=== PATIENT | female | born 1975 | race Caucasian/White ===

== ENCOUNTER 2017-05-27 14:54 | Inpatient (IN) | payer BC ==
--- NOTE | 2017-05-27 15:15 | PDOC ---
History of Present Illness - General Stated Complaint: SOB Time Seen by Provider: 05/27/17 15:13 - History of Present Illness Initial Comments: 05/27/17 15:14 Ms. Kurtz is a 41 yo female with a significant past medical history of breast cancer (due to start chemotherapy treatment today) who presents to the emergency department with a 2 day history of cough, leg swelling, and shortness of breath. Ms. Kurtz also endorses new onset yellowness of her sclera today which she says convinced her to come in. She finished her last radiotherapy session 2 weeks ago. The patient denies chest pain, headache and dizziness. Denies fever, chills, nausea, vomit, diarrhea and constipation. Denies dysuria, frequency, urgency and hematuria. Allergies: NKDA Oncologist: Anastasia Chan at [facility]; [phone] (office) PCP: unknown Past History - Past Medical History Allergies/Adverse Reactions: Allergies Allergy/AdvReac Type Severity Reaction Status Date / Time No Known Allergies Allergy Verified 05/27/17 15:13 Home Medications: Ambulatory Orders Docusate Sodium 100 mg PO DAILY 05/27/17 FENTANYL 25mcg PATCH [DURAGESIC 25mcg PATCH -] 1 each TD Q72H 05/27/17 Ondansetron HCl [Zofran] 8 mg PO PRN 05/27/17 Oxycodone HCl 5 mg PO PRN 05/27/17 Sennosides [Senna] 8.6 mg PO DAILY 05/27/17 Review of Systems - Review of Systems Comments:: 05/27/17 15:14 GENERAL/CONSTITUTIONAL: No fever or chills. No weakness. HEAD, EYES, EARS, NOSE AND THROAT: +Complains of eyes yellow starting today. No change in vision. No ear pain or discharge. No sore throat. CARDIOVASCULAR: +2 days of shortness of breath at rest on 2L of home O2. RESPIRATORY: +Dry cough over the last 2 days. No wheezing, or hemoptysis. GASTROINTESTINAL: No nausea, vomiting, diarrhea or constipation. GENITOURINARY: No dysuria, frequency, or change in urination. MUSCULOSKELETAL: +Bilateral lower leg swelling. SKIN: No rash NEUROLOGIC: No headache, vertigo, loss of consciousness, or change in strength/ sensation. ENDOCRINE: No increased thirst. No abnormal weight change HEMATOLOGIC/LYMPHATIC: No anemia, easy bleeding, or history of blood clots. ALLERGIC/IMMUNOLOGIC: No hives or skin allergy. 05/27/17 18:27 *Physical Exam - Physical Exam Comments: 05/27/17 15:14 GENERAL: Awake, alert, and fully oriented, in no acute distress HEAD: No signs of trauma, normocephalic, atraumatic EYES: +Sclera Icteric. PERRLA, EOMI, conjunctiva clear ENT: Auricles normal inspection, hearing grossly normal, nares patent, oropharynx clear without exudates. Moist mucosa NECK: Normal ROM, supple, no lymphadenopathy, JVD, or masses LUNGS: No distress, speaks full sentences, clear to auscultation bilaterally HEART: Regular rate and rhythm, normal S1 and S2, no murmurs, rubs or gallops, peripheral pulses normal and equal bilaterally. ABDOMEN: +Drain on left side observed patient reports is from Left lung and drained 2x per week at home. Soft, nontender, normoactive bowel sounds. No guarding, no rebound. No masses EXTREMITIES: +Bilateral 2+ pitting edema noted on lower extremities. NEUROLOGICAL: Cranial nerves II through XII grossly intact. Normal speech, normal gait, no focal sensorimotor deficits SKIN: Warm, Dry, normal turgor, no rashes or lesions noted. ED Treatment Course - LABORATORY CBC & Chemistry Diagram: 05/27/17 16:47 05/27/17 16:47 Medical Decision Making - Medical Decision Making 05/27/17 16:16 Patient presents with metastatic breast cancer due to start chemotherapy today. Consulted with Oncologist at [facility] (Dr. Anastasia Wills). Will work-up here and transfer as necessary for further care. 05/27/17 18:57 Care taken over by Dr. Jackson for further workup. 05/27/17 18:57 *DC/Admit/Observation/Transfer Diagnosis at time of Disposition: Primary malignant neoplasm of breast with metastasis
[2017-05-27 15:18] VITALS: BMI 24.1
--- NOTE | 2017-05-27 16:15 | PDOC ---
Attending Attestation - Physicial Exam PE: 05/27/17 16:42 EKG read by me at 16:18 Impression: Sinus tachycardia, possible left atrial enlargement, low voltage QRS Vent Rate: 126 bpm ND Interval: 134 ms QTc: 460 ms - Medical Decision Making 05/27/17 16:43 Documentation prepared by Kelly Ramos, acting as medical laboratory technologist for William Shepard, DO EXAM#: TYPE/EXAM: RESULT: [id number] CT/ABDOMEN PELVIS CT W/WO CONTR Abdomen and pelvis CT (without and with contrast) Clinical information: evaluate liver, common bile duct Multiplanar, multiphase imaging was performed following the intravenous administration of nonionic contrast in addition to noncontrast scanning. There is mild partial obscuration of the right upper quadrant secondary to beam hardening artifact arising from the patient's right upper extremity which could not be fully removed from the field-of- view at this time. No prior CT studies are available at this facility for direct comparison. The current exam is correlated with sonography performed earlier the same date. There is partial imaging of bilateral pleural effusions which are probably small to moderate in size. Correlate with radiography. A percutaneous pleural drainage catheter is noted within the left mid to lower chest. Bilateral lower lung field interstitial thickening is seen Note is also made of partial imaging of a 3.4 x 1.5 cm pleural-based soft tissue opacity suggestive of neoplastic disease within the right mid to lower chest ventrally. Similar 1 cm pleural -based soft tissue opacity is seen within the right mid chest ventrally. Multiple low-attenuation mass lesions are noted within the left right hepatic lobes suggestive of neoplastic disease. There is resultant hepatomegaly with splaying of the hepatic veins. No hepatic vein thrombosis is noted. There is also no evidence of thrombosis involving the portal venous system or inferior vena cava. Moderate partial effacement of the retrohepatic segment of the inferior cava is noted secondary to contiguous hepatic mass lesions. There is probable focal fatty infiltration within the posterior segment of the right hepatic lobe. A small amount of ascites is noted within the abdomen and pelvis bilaterally. Concentric subcutaneous edema is noted along the abdomen and pelvis principally along the flanks. There is also subcutaneous edema at the level of the partially imaged upper thighs. There is partial imaging of a catheter within the superior vena cava extending into the mid right atrium. No evidence of pneumoperitoneum, bowel obstruction. Mildly hyperdense material is seen within the gallbladder lumen consistent with inspissated bile/ sludge. There is no associated gallbladder overdistention. No obvious wall edema or pericholecystic fluid is noted. There is no definite intrahepatic or extrahepatic biliary tract dilatation. Apparent slight prominence of the common bile duct noted on sonography cannot be appreciated on CT. The spleen, greatest adrenal glands and kidneys demonstrate no discrete abnormality. There is no aortic aneurysm. No definite lymphadenopathy is noted. There is no obvious CT evidence of acute appendicitis or diverticulitis. No gross bowel pathology is identified allowing for lack of intraluminal contrast and underdistention. The T8 and T12 vertebral bodies demonstrate heterogeneous sclerosis suggestive of neoplastic disease. There is no CT evidence of fracture. No gross epidural neoplastic disease is identified. Impression: Very numerous hepatic lesions are noted strongly suggestive of neoplastic disease. There is resultant partial effacement of the retrohepatic segment of the inferior vena cava. Small amount of ascites. Concentric subcutaneous edema along the abdomen and pelvis principally along the flanks. There is also subcutaneous edema at the level of the partially imaged upper thighs. Bilateral pleural effusions. Left pleural drainage catheter in place. Partial imaging of bilateral lower lung field pleural-based soft tissue lesions suggestive of neoplastic disease. Nonspecific bilateral lower lung field interstitial thickening. T8 and T12 vertebral body sclerosis is noted suggestive neoplastic disease. No definite biliary tract dilatation is seen. Reported By: Willie Baer MD 05/27/17 [id number] 05/27/17 22:35 [facility] ([phone]) was called at 22:33 requesting a transfer of this patient. I was asked to call back in 15 minutes to speak with Saba, the charge nurse ([phone]). 05/27/17 22:58 [facility] direct floor line ([phone]) was called at 22: 58 requesting to speak with Saba charge nurse, in regards a transfer of this patient. Dr. Puckett picked up the phone and the case was discussed. Dr. Puckett states he can not accept the patient at this time. I will microblog hospitalist. <Kelly Ramos - Last Filed: 05/27/17 23:04> - Resident Resident Name: Mac Mccartney - ED Attending Attestation I have performed the following: I have examined & evaluated the patient, The case was reviewed & discussed with the resident, I agree w/resident's findings & plan, Exceptions are as noted - HPI HPI: 05/27/17 16:12 41 YO F c Metastatic Breast Cancer, presents with increasing dyspnea and jaundice. No Chemo recently, Last palliative radiation to left lung was two weeks ago. Care at [facility] - Physicial Exam PE: 05/27/17 16:14 Appears Jaundiced, VSS, NAD - Medical Decision Making 05/27/17 16:[address] Mccartney's Assessment and Plan <William Shepard - Last Filed: 05/27/17 23:18> Discharge Disposition - Discharge Dispostion Admit: Yes <William Shepard - Last Filed: 05/27/17 23:18> - Diagnosis Metastatic breast cancer, Hepatic encephalopathy syndrome, Pleural effusion Liver failure Qualifiers: Liver failure chronicity: acute Hepatic coma status: without hepatic coma Qualified Code(s): K72.00 - Acute and subacute hepatic failure without coma; K72.00 - Acute and subacute hepatic failure without coma Dyspnea Qualifiers: Dyspnea type: unspecified Qualified Code(s): R06.00 - Dyspnea, unspecified; R06.00 - Dyspnea, unspecified - Discharge Dispostion Condition at time of disposition: Unchanged/Unknown Medical Decision Making - Medical Decision Making 05/27/17 23:06 Patient is in Liver Failure with some Ascites, Pleural Effusion, Dependent Edema and Dyspnea. Patient remains a full code, and, was scheduled to start a new chemotherapy today. Discussed with Dr. Parekh at the Urgent Care at [facility] who tells me their hospital is full and unable to accept the patient in Transfer tonight, and that we could check back in a day or two but they really have no space for her now. No PMD here at [place], will seek admission/treatment from our hospitalist service. <William Shepard - Last Filed: 05/27/17 23:18>
[2017-05-27 17:15] LABS: BASOPHIL 0.5 % (0-2.0); EOSINOPHIL 0.2 % (0-4.5); MCH 34.2 pg (25.7-33.7); MCHC 33.2 g/dl (32.0-36.0); MEAN PLT VOLUME 8.5 fl (7.5-11.1); RDW 28.5 % (11.6-15.6); WHITE BLOOD COUNT 8.5 K/mm3 (4.0-10.0)
[2017-05-27 17:23] LABS: PLATELET COUNT 26 K/MM3 (134-434)
[2017-05-27 17:42] LABS: INR 1.5 (0.82-1.09)
[2017-05-27 17:44] LABS: ACTIVATED PTT 28.7 SECONDS (26.9-34.4)
[2017-05-27 17:56] LABS: ALBUMIN 1.9 g/dl (3.4-5.0); ANION GAP 12 (8-16); CALCIUM 7.7 mg/dL (8.5-10.1); CO2 22 mmol/L (21-32); CREATININE 0.4 mg/dL (0.55-1.02); GLUCOSE,RANDOM 77 mg/dL (74-106); SGPT/ALT 122 U/L (12-78)
[2017-05-27 17:58] LABS: ALK PHOS 409 U/L (45-117); BILIRUBIN,TOTAL 7.1 mg/dL (0.2-1.0); TOT PROT 5.9 g/dl (6.4-8.2)
[2017-05-27 17:59] LABS: SGOT/AST 398 U/L (15-37)
[2017-05-27 18:43] LABS: PLATELET ESTIMATE MARKEDLY DECREASED (NORMAL)
[2017-05-27 18:44] LABS: ANISOCYTOSIS 3+; HYPOCHROMIA 1+; MACROCYTOSIS 1+; MICROCYTOSIS 2+
[2017-05-27] MEDS ORDERED: LACTULOSE 20 GM/30 ML UDC (FOR ORAL USE ONLY) PO ONE (23:23)
[2017-05-27] MEDS ORDERED: LACTULOSE 20 GM/30 ML UDC (FOR ORAL USE ONLY) ONE (23:52)
--- NOTE | 2017-05-28 01:31 | PN ---
Teaching Attending Note Name of Resident: Mu Chatman ATTENDING PHYSICIAN STATEMENT I saw and evaluated the patient. I reviewed the resident's note and discussed the case with the resident. I agree with the resident's findings and plan as documented. SUBJECTIVE: 41 yo c/o cough, SOB and leg edema x 2 days OBJECTIVE: Vital Signs Temperature 98.4 F 05/27/17 21:46 Pulse Rate 130 H 05/27/17 21:46 Respiratory Rate 22 05/27/17 21:46 Blood Pressure 100/70 05/27/17 21:46 O2 Sat by Pulse Oximetry (%) 95 05/27/17 21:46 HEART: Regular rate and rhythm, normal S1 and S2, no murmurs, rubs or gallops, peripheral pulses normal and equal bilaterally. ABDOMEN: +Drain on left side observed patient reports is from Left lung and drained 2x per week at home. Soft, nontender, normoactive bowel sounds. No guarding, no rebound. No masses EXTREMITIES: +Bilateral 2+ pitting edema noted on lower extremities. CBC, BMP 05/27/17 16:47 05/27/17 16:47 ASSESSMENT AND PLAN: 1. Metastatic Breast Cancer -metastatic disease to liver /lungs. On paliative XRT /chemo . No prior records are available. 2. Metastatic pleural effusion , possibly postobstructive infectious component , pleurex in place 3. Hyponatremia - severe 4. Metastatic liver disease and elevated ammonia level 5. Anasarca- 2/2 low albumin level PLAN - obtain prior records from [facility] - slowly correct Na - drain pleurex - IVF - paliative chemotherapy per primary oncolgist in [facility]
[2017-05-28 01:41] LABS: URINE APPEARANCE SLCLOUDY; URINE BLOOD NEGATIVE (NEGATIVE); URINE COLOR AMBER; URINE GLUCOSE (UA) NEGATIVE (NEGATIVE); URINE KETONE NEGATIVE (NEGATIVE); URINE NITRITE NEGATIVE (NEGATIVE); URINE UROBILINOGEN 4.0 E.U/dl mg/dL (0.2-1.0)
[2017-05-28 01:46] LABS: URINE PROTEIN 1+ (NEGATIVE)
[2017-05-28] MEDS ORDERED: guaiFENesin 200 MG/10 ML 10 ML UNIT-DOSE CUPS ONE (01:54)
[2017-05-28] MEDS: guaiFENesin 200 MG/10 ML 10 ML UNIT-DOSE CUPS PO PRN (01:57)
[2017-05-28 02:04] LABS: URINE BACTERIA RARE /hpf (NONE SEEN); URINE HYALINE CAST 4 /lpf; URINE MUCUS RARE; URINE RBC 3 /hpf (0-3); URINE WBC 26 /hpf (3-5)
--- NOTE | 2017-05-28 02:54 | HP ---
CHIEF COMPLAINT: cough, sob PCP: Onc: Dr. Anastasia Chan [facility] [phone] HISTORY OF PRESENT ILLNESS: Pt is an unfortunate 41 year old female with PMH breast cancer with mets to the lung who presented to ED with 2 days of dry cough and shortness of breath. Pt has had a persistent cough without any sputum production. Pt denies fever, chills, nausea, vomiting, diarrhea. Pt also states that she has not been eating and drinking well for the last 2 weeks, which she attributes to her most recent round of radiation. She is tolerating PO much better, now. ER course was notable for: (1) tachycardia. labs significant for plt 26, INR 1.5, LA 6.3, Ammonia 57.1, Na 126, AST 399, ALT 122, ALK 409, Alb 1.9, T.bili 7.7, D. bili 7.1 (2) CXR showing L pleural effusion pending official read. Abd U/S: diffuse hepatic heterogeneity, perihepatic ascites, R pleural effusion. Abd CT: hepatic neoplasm, Ascites, b/l pleural effusion, b/l lower lung tissue thickening, T12 changes suggestive of possible neoplasm (3) Recent Travel: denies PAST MEDICAL HISTORY: Breast CA with mets to liver and lung PAST SURGICAL HISTORY: Right mastectomy Social History: Smoking: denies Alcohol: denies Drugs: denies Family History: denies Allergies No Known Allergies Allergy (Verified 05/27/17 15:13) HOME MEDICATIONS: Home Medications Medication Instructions Recorded Docusate Sodium 100 mg PO DAILY 05/27/17 FENTANYL 25mcg PATCH [DURAGESIC 1 each TD Q72H 05/27/17 25mcg PATCH -] Ondansetron HCl [Zofran] 8 mg PO PRN 05/27/17 Oxycodone HCl 5 mg PO PRN 05/27/17 Sennosides [Senna] 8.6 mg PO DAILY 05/27/17 REVIEW OF SYSTEMS CONSTITUTIONAL: generalized weakness Absent: fever, chills, diaphoresis, , malaise, loss of appetite, weight change HEENT: difficulty swallowing, yellow eyes Absent: rhinorrhea, nasal congestion, throat pain, throat swelling, , mouth swelling, ear pain, eye pain, visual changes CARDIOVASCULAR: Absent: chest pain, syncope, palpitations, irregular heart rate, lightheadedness , peripheral edema RESPIRATORY: cough, shortness of breath, dyspnea with exertion Absent: , orthopnea, wheezing, stridor, hemoptysis GASTROINTESTINAL: Absent: abdominal pain, abdominal distension, nausea, vomiting, diarrhea, constipation, melena, hematochezia GENITOURINARY: Absent: dysuria, frequency, urgency, hesitancy, hematuria, flank pain, genital pain MUSCULOSKELETAL: Absent: myalgia, arthralgia, joint swelling, back pain, neck pain SKIN: Absent: rash, itching, pallor HEMATOLOGIC/IMMUNOLOGIC: Absent: easy bleeding, easy bruising, lymphadenopathy, frequent infections ENDOCRINE: Absent: unexplained weight gain, unexplained weight loss, heat intolerance, cold intolerance NEUROLOGIC: Absent: headache, focal weakness or paresthesias, dizziness, unsteady gait, seizure, mental status changes, bladder or bowel incontinence PSYCHIATRIC: Absent: anxiety, depression, suicidal or homicidal ideation, hallucinations. PHYSICAL EXAMINATION Vital Signs - 24 hr 05/27/17 05/27/17 05/27/17 15:15 16:21 18:40 Temperature 98 F Pulse Rate 120 H Pulse Rate [ 124 H Left Radial] Respiratory 20 22 Rate Blood Pressure 105/74 Blood Pressure 98/64 [Left Arm] O2 Sat by Pulse 100 98 95 Oximetry (%) 05/27/17 21:46 Temperature 98.4 F Pulse Rate Pulse Rate [ 130 H Left Radial] Respiratory 22 Rate Blood Pressure Blood Pressure 100/70 [Left Arm] O2 Sat by Pulse 95 Oximetry (%) GENERAL: Awake, alert, and fully oriented, in no acute distress. Left chest chemoport HEAD: Normal with no signs of trauma. EYES: Pupils equal, round and reactive to light, extraocular movements intact, sclera icteric, conjunctiva clear. No lid lag. EARS, NOSE, THROAT: oropharynx clear without exudates. Moist mucous membranes. NECK: Normal range of motion, supple without lymphadenopathy, JVD, or masses. No bruits LUNGS: Breath sounds equal, clear to auscultation bilaterally. No wheezes, and no crackles. No accessory muscle use. HEART: Regular rhythm, tachycardic, normal S1 and S2 without murmur, rub or gallop. ABDOMEN: Soft, nontender, not distended, normoactive bowel sounds, no guarding, no rebound, no masses. No hepatomegaly or splenomegaly. MUSCULOSKELETAL: Normal range of motion at all joints. No bony deformities or tenderness. No CVA tenderness. UPPER EXTREMITIES: 2+ pulses, warm, well-perfused. No cyanosis. No clubbing. No peripheral edema. LOWER EXTREMITIES: 2+ pulses, warm, well-perfused. No calf tenderness. No peripheral edema. NEUROLOGICAL: Cranial nerves II-XII intact. Normal speech. Sensation intact throughout. Strength 5/5 except hip flexion 3/5 PSYCHIATRIC: Cooperative. Good eye contact. Appropriate mood and affect. SKIN: Warm, dry, normal turgor, no rashes or lesions noted, normal capillary refill. Laboratory Results - last 24 hr 05/27/17 05/27/17 05/27/17 16:47 16:47 16:47 WBC 8.5 RBC 3.40 L Hgb 11.6 Hct 35.1 MCV 103.0 H MCH 34.2 H MCHC 33.2 RDW 28.5 H Plt Count 26 L* MPV 8.5 Neutrophils % 76.0 Lymphocytes % 12.1 Monocytes % 11.2 H Eosinophils % 0.2 Basophils % 0.5 Hypochromia 1+ Platelet Estimate Markedly decreased Anisocytosis 3+ Microcytosis 2+ Macrocytosis 1+ PT with INR INR PTT (Actin FS) Sodium 126 L Potassium 4.9 Chloride 92 L Carbon Dioxide 22 Anion Gap 12 BUN 16 Creatinine 0.4 L Creat Clearance w eGFR > 60 Random Glucose 77 Lactic Acid Calcium 7.7 L Total Bilirubin 7.1 H Direct Bilirubin AST 398 H ALT 122 H Alkaline Phosphatase 409 H Ammonia 57.1 H Total Protein 5.9 L Albumin 1.9 L Blood Type Antibody Screen Spec Expiration Date 05/27/17 05/27/17 05/27/17 16:47 16:47 17:00 WBC RBC Hgb Hct MCV MCH MCHC RDW Plt Count MPV Neutrophils % Lymphocytes % Monocytes % Eosinophils % Basophils % Hypochromia Platelet Estimate Anisocytosis Microcytosis Macrocytosis PT with INR 17.00 H INR 1.50 H PTT (Actin FS) 28.7 Sodium Potassium Chloride Carbon Dioxide Anion Gap BUN Creatinine Creat Clearance w eGFR Random Glucose Lactic Acid 6.3 H* Calcium Total Bilirubin Direct Bilirubin 5.2 H AST ALT Alkaline Phosphatase Ammonia Total Protein Albumin Blood Type Antibody Screen Spec Expiration Date 05/27/17 05/27/17 18:00 19:00 WBC RBC Hgb Hct MCV MCH MCHC RDW Plt Count MPV Neutrophils % Lymphocytes % Monocytes % Eosinophils % Basophils % Hypochromia Platelet Estimate Anisocytosis Microcytosis Macrocytosis PT with INR INR PTT (Actin FS) Sodium Potassium Chloride Carbon Dioxide Anion Gap BUN Creatinine Creat Clearance w eGFR Random Glucose Lactic Acid Calcium Total Bilirubin Cancelled Direct Bilirubin Cancelled AST Cancelled ALT Cancelled Alkaline Phosphatase Cancelled Ammonia Total Protein Cancelled Albumin Cancelled Blood Type Cancelled Antibody Screen Cancelled Spec Expiration Date Cancelled ASSESSMENT/PLAN: Pt is a pleasant 41 year old female with PMH breast cancer with mets to the lung who presented to ED with cough and SOB. Pt is being admitted for liver failure 2/2 liver metastases. Pt was diagnosed with breast cancer at [facility] 2 years ago. She received chemo and radiation x 20 rounds and had a R mastectomy. 3 months later , she had a recurrence in the same region. Despite many more rounds of chemo and radiation, she has unfortunately had metastases to her lung and liver. She has been receiving treatment at [facility]. Day team to get records from [facility]. Oncologist: Dr. Anastasia Chan [facility] #cough/SOB -Lung mets -pleural effusion w/ drain -Guaifenesin #Liver failure 2/2 liver mets -ammonia -bili -albumin -INR -scleral icterus -anasarca w/ 2+ pedal edema -if AMS -> lactulose for hepatic encephalopathy #Breast CA with mets to liver & lung -L chest portacath -f/u heme/onc #Tachycardia -likely 2/2 volume depletion (pt has not been tolerating PO well for 2 weeks) as well as diffuse mets -NS #thrombocytopenia -plts of 26 -asymtommatic without bleeding -if pt develops bleed, will consider plt transfusion #lactic acidosis -likely 2/2 metastatic disease and decreased volume due to decreased PO intake -NS -f/u labs #Incidental finding of kasia changes of T12 -changes suggestive of possible neoplasm -review records with [facility] and primary oncologist -f/u with heme/onc #low Na -NS -f/u CMP #FEN -NS -Na 126 -Reg diet #PPX -SCDs #Dispo -Admit to Med/Surg Visit type - Emergency Visit Emergency Visit: Yes ED Registration Date: 05/28/17 Care time: The patient presented to the Emergency Department on the above date and was hospitalized for further evaluation of their emergent condition. - New Patient This patient is new to me today: Yes Date on this admission: 05/28/17 - Critical Care Critical Care patient: No
[2017-05-28] MEDS ORDERED: LEVOFLOXACIN 250 MG TABLET (FP) PO ONE (07:17)
[2017-05-28] MEDS ORDERED: LEVOFLOXACIN 250 MG TABLET (FP) ONE (07:40)
[2017-05-28] MEDS ORDERED: LEVOFLOXACIN 500 MG TABLET (FP) ONE (07:40)
[2017-05-28] MEDS: SODIUM CHLORIDE 1,000 ML IV SCH (08:09)
[2017-05-28 09:29] LABS: URINE LEUK ESTERASE 1+ (NEGATIVE)
--- NOTE | 2017-05-28 10:02 | HOSP ---
Physical Examination Vital Signs: Vital Signs Temperature 98.4 F 05/27/17 21:46 Pulse Rate 128 H 05/28/17 09:42 Respiratory Rate 23 05/28/17 09:42 Blood Pressure 96/72 05/28/17 09:42 O2 Sat by Pulse Oximetry (%) 96 05/28/17 09:42 Findings/Remarks: Subjective: The patient was seen and examined in the ED. She complains of worsening shortness of breath over the past 2-4 weeks. Left chest PleurX last drained on 05/25. Instructed RN to drain today Discussed with patient's oncologist, Anastasia Wills, ([phone]) at [facility]. Patient accepted for transfer as of 09:49 Platelets 16, will monitor, no evidence of active bleeding. Will order if platelets <10 CTAP reviewed, discussed possible addition of abx with Dr. Drummond, awaiting to be evaluated. Current Medications Generic Name Dose Route Start Last Admin Trade Name Freq PRN Reason Stop Dose Admin Guaifenesin 10 ml 05/28/17 01:34 05/28/17 01:57 Robitussin - PO 10 ml Q6H PRN Administration COUGH Sodium Chloride 1,000 mls @ 75 mls/hr 05/28/17 07:00 05/28/17 08:09 Normal Saline - IV 75 mls/hr ASDIR KAREN Administration Objective: Vital Signs Period Temp Pulse Resp BP Sys/[place] Pulse Ox Last 24 Hr 98 F-98.4 F 120-130 20-23 96-105/64-76 95-100 Physical Exam: General: NAD, A&Ox3 HEENT: Sclera icteric Lungs: Tachypnic. Decreased breath sounds bilaterally, greater on the left. Left PleurX in place Heart: Tachycardia. S1S2 Abd: Soft, non-tender, non-distended. Normoactive bowel sounds Ext: B/l lower extremities with 3+ pitting edema. 2+ DP/PT bilaterally Skin: Right breast fungating, erythematous Neuro: CN 2-12 intact CBCD WBC 10.1 K/mm3 (4.0-10.0) H 05/28/17 10:00 RBC 3.00 M/mm3 (3.60-5.2) L 05/28/17 10:00 Hgb 10.2 GM/dL (10.7-15.3) L D 05/28/17 10:00 Hct 31.2 % (32.4-45.2) L 05/28/17 10:00 MCV 104.1 fl (80-96) H 05/28/17 10:00 MCHC 32.6 g/dl (32.0-36.0) 05/28/17 10:00 RDW 28.7 % (11.6-15.6) H 05/28/17 10:00 Plt Count 16 K/MM3 (134-434) L* D 05/28/17 10:00 MPV 7.0 fl (7.5-11.1) L D 05/28/17 10:00 CMP Sodium 126 mmol/L (136-145) L 05/27/17 16:47 Potassium 4.9 mmol/L (3.5-5.1) 05/27/17 16:47 Chloride 92 mmol/L (98-107) L 05/27/17 16:47 Carbon Dioxide 22 mmol/L (21-32) 05/27/17 16:47 Anion Gap 12 (8-16) 05/27/17 16:47 BUN 16 mg/dL (7-18) 05/27/17 16:47 Creatinine 0.4 mg/dL (0.55-1.02) L 05/27/17 16:47 Creat Clearance w eGFR > 60 (>60) 05/27/17 16:47 Random Glucose 77 mg/dL (74-106) 05/27/17 16:47 Calcium 7.7 mg/dL (8.5-10.1) L 05/27/17 16:47 Total Bilirubin 7.1 mg/dL (0.2-1.0) H 05/27/17 16:47 AST 398 U/L (15-37) H 05/27/17 16:47 ALT 122 U/L (12-78) H 05/27/17 16:47 Alkaline Phosphatase 409 U/L (45-117) H 05/27/17 16:47 Total Protein 5.9 g/dl (6.4-8.2) L 05/27/17 16:47 Albumin 1.9 g/dl (3.4-5.0) L 05/27/17 16:47 Assessment: This is a 41 year old female with PMHx of breast cancer with mets to the liver, lungs (has left lung PleurX), and possible bone who presented to the ED with shortness of breath and increase leg swelling. Plan: 1) Shortness of breath - Progression of disease vs. PE vs. worsening pleural effusion - PleurX drained 20ml today, patient reports feeling better - Discussed with the patient possibility of PE, however unable to treat at this time due to severe thrombocytopenia. Patient and family aware of this - Will defer chest CTA at this time (patient refused) and it will not change the current management given severe thrombocytopenia - Possible superimposed pneumonia, discussed with Dr. Drummond, started on Vancomycin and Zosyn - O2 via NC prn - F/u pulmonary consult 2) Elevated lactic acid - Patient does not appear toxic for the degree of elevation of her lactic acid - It continues to trend up - Will give small fluid bolus and recheck this evening - Cultures pending - Elevation in lactic acid may be 2/2 malignancy. Spoke to Sirena, RN for Dr. Anastasia Wills who states patient does not have any lactic acid levels to compare it to - Continue to trend 3) Transaminitis - Labs from 05/13 reveal total bilirubin 1, AST 238, ALT 78, Alk phos 199 - Worsening here - Patient jaundice with icteric sclera - Liver ultrasound with diffuse nonspecific hepatic heterogeneity. Small amount of perihepatic ascites. No obvious evidence of cholelithiasis. Borderline gallbladder wall thickness. Moderate amount of inspissated bile/sludge within the gallbladder lumen. Common bile duct appears to be slightly prominent with a 0.7cm diameter - MRCP per GI - Appreciate GI consult 4) Hyperammonemia - Given lactulose, f/u level tomorrow 5) Breast cancer with mets to lung, liver, possible bone - CTAP with T8 and T12 vertebral body sclerosis suggestive of neoplastic disease - Per Dr. Wills's RN, patient had progression of disease on Gemcitabine and Carboplatin. Was given Eribulin on 03/31/17 and was scheduled for round 2 of Eribulin on 05/27 6) Left lung chronic pleural effusion with PleurX - Per patient draining 2 times per week. Per Sirena RN with Dr. Wills, patient was asked as of 05/06/17 to drain once per week - Drained 20ml today - Drain daily prn (patient will tell the provider when she no longer wants it drained) 7) B/l lower extremity edema - Doppler negative for DVT b/l - Likely progression of disease - Lymphadema wrap with improvement in edema 8) F/E/N: - Monitor electrolytes - Hypophosphatemia: replete - Hyponatremia: Monitor, likely 2/2 malignancy? 9) Prophylaxis: - Hold all chemical DVT prophylaxis 2/2 severe thrombocytopenia - SCDs bilaterally 10) Dispo: - Requires continued inpatient care - Had discussion about DNR/DNI with patient and family at the bedside. The mother stated in Indonesian and was translated to me in Kiswahili "we don't believe in mechanical ventilation". They stated they are not ready at this time to put anything into writing and will discuss it as a family when I leave CODE STATUS: FULL CODE
[2017-05-28 10:15] LABS: BASOPHIL 0.1 % (0-2.0); EOSINOPHIL 0.1 % (0-4.5); MCH 33.9 pg (25.7-33.7); MCHC 32.6 g/dl (32.0-36.0); MEAN CELL VOLUME 104.1 fl (80-96); NEUTROPHILS 72.6 % (42.8-82.8); RDW 28.7 % (11.6-15.6); WHITE BLOOD COUNT 10.1 K/mm3 (4.0-10.0)
[2017-05-28 10:28] LABS: PLATELET COUNT 16 K/MM3 (134-434)
[2017-05-28 10:47] LABS: ALBUMIN 1.7 g/dl (3.4-5.0); ANION GAP 15 (8-16); CALCIUM 7.2 mg/dL (8.5-10.1); CO2 21 mmol/L (21-32); CREATININE 0.5 mg/dL (0.55-1.02); GLUCOSE,RANDOM 92 mg/dL (74-106); MAGNESIUM 1.9 mg/dL (1.8-2.4); SGOT/AST 346 U/L (15-37); SGPT/ALT 114 U/L (12-78); TOT PROT 5.2 g/dl (6.4-8.2)
[2017-05-28 10:48] LABS: ALK PHOS 345 U/L (45-117); BILIRUBIN,TOTAL 6.8 mg/dL (0.2-1.0); PHOSPHOROUS 1.3 mg/dL (2.5-4.9)
--- NOTE | 2017-05-28 12:48 | CONSULT ---
Consultation: CONSULT REQUEST: INFECTIOUS DISEASE HISTORY OF PRESENT ILLNESS: Ms Kurtz is a 41 yo F with PMHx of breast CA and chronic pleural effusions with a pleurX catheter who presented to the ED yesterday complaining of new onset scleral icterus. Patient denies N, V and acute abdominal pain, but endorses chronic leg edema. In addition, she has been experiencing gradually increasing SOB and nonproductive cough for the past 5 days. Patient has been on chronic oxygen at home for 3 weeks. Endorses chronic orthopnea. She denies cough productive of any sputum, f, chills, SOB while on oxygen, traveling recently, or being around any sick contacts. She has no prior history of PNA. In ED, patient was afebrile and tachycardic at 120s. WBC count of 10.1. CT abd/ pelvis showed pleural effusions and b/l lower lung, liver, and bone lesions consistent with metastatic spread. It is unknown whether these are new or old. No infiltrate was seen. Also notable was Lactic acid of 7.6 (could be due to liver failure or malignancy or both), direct hyperbilirubinemia and transaminitis. History was obtained per Medical Student. Home Medication List Medication Instructions Recorded Confirmed Type Docusate Sodium 100 mg PO DAILY 05/27/17 05/27/17 History FENTANYL 25mcg PATCH [DURAGESIC 1 each TD Q72H 05/27/17 05/27/17 History 25mcg PATCH -] Ondansetron HCl [Zofran] 8 mg PO PRN 05/27/17 05/27/17 History Oxycodone HCl 5 mg PO PRN 05/27/17 05/27/17 History Sennosides [Senna] 8.6 mg PO DAILY 05/27/17 05/27/17 History REVIEW OF SYSTEMS: CONSTITUTIONAL: Absent: fever, chills, diaphoresis, generalized weakness, malaise, loss of appetite, weight change HEENT: + scleral icterus . Absent: rhinorrhea, nasal congestion, throat pain, throat swelling, difficulty swallowing, mouth swelling, ear pain, eye pain, visual changes CARDIOVASCULAR: +b/l LE peripheral edema Absent: chest pain, syncope, palpitations, irregular heart rate, lightheadedness RESPIRATORY: +cough, orthopnea. Absent: shortness of breath, wheezing, stridor, hemoptysis GASTROINTESTINAL: Absent: abdominal pain, abdominal distension, nausea, vomiting , diarrhea, constipation HEMATOLOGIC/IMMUNOLOGIC: Absent: easy bleeding, easy bruising, lymphadenopathy, frequent infections ENDOCRINE: Absent: unexplained weight gain, unexplained weight loss, heat intolerance, cold intolerance NEUROLOGIC: Absent: headache, focal weakness or paresthesias, dizziness, unsteady gait, seizure, mental status changes, bladder or bowel incontinence PSYCHIATRIC: Absent: anxiety, depression, suicidal or homicidal ideation, hallucinations. PHYSICAL EXAMINATION Vital Signs Temperature 98.0 F 05/29/17 14:27 Pulse Rate 117 H 05/29/17 14:27 Respiratory Rate 22 05/29/17 14:27 Blood Pressure 91/63 05/29/17 14: O2 Sat by Pulse Oximetry (%) 98 05/29/17 09:00 GENERAL: Awake, alert, and fully oriented, in no acute distress, looks tired HEENT: No trauma, +scleral icterus, no JVD LUNGS: Crackles present in LLQ. Rhonchi heard throughout R lung field. HEART: S1, S2, RRR ABDOMEN: Slightly taut, NT, palpable liver, normoactive BS EXT: BLLE pitting edema, 2+ pulses, well perfused Skin: Scars from mastectomy and necrotic skin changes present over R breast. Active Medications Generic Name Dose Route Start Last Admin Trade Name Freq PRN Reason Stop Dose Admin Guaifenesin 10 ml 05/28/17 01:34 05/28/17 01:57 Robitussin - PO 10 ml Q6H PRN Administration COUGH Sodium Chloride 1,000 mls @ 75 mls/hr 05/28/17 07:00 05/28/17 08:09 Normal Saline - IV 75 mls/hr ASDIR KAREN Administration Vancomycin HCl 1,000 mg/ 250 mls @ 250 mls/hr 05/28/17 22:00 Dextrose IVPB BID KAREN Protocol Piperacillin/Tazobactam/Dextrose 100 mls @ 200 mls/hr 05/28/17 18:00 Zosyn 4.5gm Ivpb (Premix) IVPB Q8H-IV KAREN Protocol Potassium Phos/Sodium Phos 1 packet 05/28/17 11:13 Phos-Nak Packet - PO 05/28/17 11:14 ONCE ONE Chest X-ray showed weak inspiration with congestive and infiltrative changes in addition to L pleural fluid. CT abdomen showed b/l lower lung field interstitial thickening and lesions consistent with possible neoplastic disease. Multiple hepatic lesions were also seen. Microbiology 05/28/17 01:26 Urine - Urine Clean Catch Urine Culture - Final Contaminated: Please Repeat 05/27/17 16:47 Blood - Peripheral Venous Blood Culture - Preliminary NO GROWTH OBTAINED AFTER 24 HOURS, INCUBATION TO CONTINUE FOR 4 DAYS. 05/27/17 16:47 Blood - Peripheral Venous Blood Culture - Preliminary NO GROWTH OBTAINED AFTER 24 HOURS, INCUBATION TO CONTINUE FOR 4 DAYS. ASSESSMENT/PLAN: Ms Kurtz is a 41 yo F with PMHx of breast CA and chronic pleural effusions with a pleurX catheter who presented to the ED yesterday complaining of new onset scleral icterus. # Metastatic Breast Cancer- with likely mets to lung and liver - Scleral icterus and transaminitis could be due to tumor compression vs stone obstruction? - Cough and SOB likely due to lung mets, unlikely from PNA - Can continue empiric Zosyn for now for ?GI source, pending workup - [place] [facility] [place] Discussed w/ Reid. Will follow. Lelia Chavez MD - PGY1 Infectious Disease Visit type - Emergency Visit Emergency Visit: No - New Patient This patient is new to me today: No - Critical Care Critical Care patient: No
[2017-05-28] MEDS ORDERED: NAPH,MB-DB/K PH,MBDB POWDER PACKET PO ONE (13:00)
--- NOTE | 2017-05-28 13:05 | EKG ---
Test Reason : Blood Pressure : / mmHG Vent. Rate : 126 BPM Atrial Rate : 126 BPM P-R Int : 134 ms QRS Dur : 070 ms QT Int : 318 ms P-R-T Axes : 063 041 056 degrees QTc Int : 460 ms SINUS TACHYCARDIA POSSIBLE LEFT ATRIAL ENLARGEMENT LOW VOLTAGE QRS CANNOT RULE OUT ANTERIOR INFARCT , AGE UNDETERMINED ABNORMAL ECG NO PREVIOUS ECGS AVAILABLE Confirmed by RALF CORBETT MD ([id number]) on 05/28/2017 1:05:05 PM Referred By: Confirmed By:RALF CORBETT MD
[2017-05-28] MEDS: PIPERACILLIN/TAZOB 4.5 GM 100 ML IVPB SCH ×2 (13:15→21:52)
[2017-05-28] MEDS ORDERED: PIPERACILLIN/TAZOB 4.5 GM 100 ML IVPB ONE (13:30)
[2017-05-28] MEDS ORDERED: VANCOMYCIN 1 GRAM (PRE-DOCKED) 250 ML IVPB ONE (13:30)
[2017-05-28] MEDS: VANCOMYCIN 1,000 MG in DEXTROSE 5%-WATER - 250 ML IVPB SCH ×2 (13:40→22:41)
[2017-05-28] MEDS ORDERED: SODIUM CHLORIDE 250 ML IV STA (16:13)
[2017-05-28 16:26] LABS: MCH 34.7 pg (25.7-33.7); MCHC 33.3 g/dl (32.0-36.0); MEAN CELL VOLUME 104.1 fl (80-96); MEAN PLT VOLUME 8.2 fl (7.5-11.1); RDW 29.2 % (11.6-15.6); WHITE BLOOD COUNT 9.2 K/mm3 (4.0-10.0)
[2017-05-28 17:11] LABS: PLATELET COUNT 22 K/MM3 (134-434)
--- NOTE | 2017-05-28 17:22 | CON.GI ---
Consult Consult Specialty:: GI Referred by:: Hospitalist Reason for Consultation:: meatastatic liver disease - History of Present Illness History of Present Illness: Chart reviewed. A 41 yo female with metastatic to lung, liver, and possibly bone breast cancer. Under care of [facility] [place]. Received surgery, xrt and multiple rounds of chemotherapy. Admitted with shortness of breath and dry cough. Noted to have cholestasis with hepatitis, bilateral pleural effusions and metastatic hepatic disease on CT w/o obvious vascular thrombosis. Family noted icterus 1 day ago. A limited US of the liver showed a CBD of 0.7 and no obstruction. Afebrile. No nausea vomiting, hematemesis, hematochezia, melena. - History Source History Provided By: Patient, Medical Record Limitations to Obtaining History: No Limitations - Past Medical History Pulmonary: Yes: Other (see hpi, H&P) Hepatobiliary: Yes: Other (see hpi) - Past Surgical History Additional Surgical History: mastectomy, plurex - Alcohol/Substance Use Hx Alcohol Use: No - Smoking History Smoking history: Never smoked Have you smoked in the past 12 months: No Home Medications - Allergies Allergies/Adverse Reactions: Allergies Allergy/AdvReac Type Severity Reaction Status Date / Time No Known Allergies Allergy Verified 05/27/17 15:13 - Home Medications Home Medications: Ambulatory Orders Docusate Sodium 100 mg PO DAILY 05/27/17 FENTANYL 25mcg PATCH [DURAGESIC 25mcg PATCH -] 1 each TD Q72H 05/27/17 Ondansetron HCl [Zofran] 8 mg PO PRN 05/27/17 Oxycodone HCl 5 mg PO PRN 05/27/17 Sennosides [Senna] 8.6 mg PO DAILY 05/27/17 Family Disease History - Family Disease History Family History: Unremarkable Review of Systems Findings/Remarks: please refer to H&P Physical Exam-GI Vital Signs: Vital Signs Temperature 97.8 F 05/28/17 12:14 Pulse Rate 110 H 05/28/17 15:23 Respiratory Rate 26 H 05/28/17 15:23 Blood Pressure 97/68 05/28/17 15:23 O2 Sat by Pulse Oximetry (%) 98 05/28/17 15:23 Constitutional: Yes: Anxious Eyes: Yes: Sclera Icterus HENT: Yes: Atraumatic Neck: Yes: Supple Cardiovascular: Yes: Tachycardia Respiratory: Yes: Cough, SOB ...Auscultate: Yes: Normoactive Bowel Sounds ...Palpate: Yes: Soft. No: Guarding, Pulsatile Mass, Tenderness ...Percussion: No: Fluid Wave Integumentary: Yes: Jaundice Neurological: Yes: Alert, Oriented Labs: CBC, BMP 05/28/17 16:05 05/28/17 10:00 INR, PTT INR 1.50 (0.82-1.09) H 05/27/17 17:00 Laboratory Tests 05/27/17 05/27/17 05/27/17 16:47 16:47 16:47 WBC 8.5 RBC 3.40 L Hgb 11.6 Hct 35.1 MCV 103.0 H MCH 34.2 H MCHC 33.2 RDW 28.5 H Plt Count 26 L* MPV 8.5 Neutrophils % 76.0 Lymphocytes % 12.1 Monocytes % 11.2 H Eosinophils % 0.2 Basophils % 0.5 Hypochromia 1+ Platelet Estimate Markedly decreased Anisocytosis 3+ Microcytosis 2+ Macrocytosis 1+ PT with INR INR PTT (Actin FS) Sodium 126 L Potassium 4.9 Chloride 92 L Carbon Dioxide 22 Anion Gap 12 BUN 16 Creatinine 0.4 L Creat Clearance w eGFR > 60 Random Glucose 77 Lactic Acid Calcium 7.7 L Phosphorus Magnesium Total Bilirubin 7.1 H Direct Bilirubin AST 398 H ALT 122 H Alkaline Phosphatase 409 H Ammonia 57.1 H Total Protein 5.9 L Albumin 1.9 L Urine Color Urine Appearance Urine pH Ur Specific [place] Urine Protein Urine Glucose (UA) Urine Ketones Urine Blood Urine Nitrite Urine Bilirubin Urine Urobilinogen Ur Leukocyte Esterase Urine RBC Urine WBC Ur Epithelial Cells Urine Bacteria Hyaline Casts Urine Mucus Blood Type Antibody Screen Spec Expiration Date 05/27/17 05/27/17 05/27/17 16:47 16:47 17:00 WBC RBC Hgb Hct MCV MCH MCHC RDW Plt Count MPV Neutrophils % Lymphocytes % Monocytes % Eosinophils % Basophils % Hypochromia Platelet Estimate Anisocytosis Microcytosis Macrocytosis PT with INR 17.00 H INR 1.50 H PTT (Actin FS) 28.7 Sodium Potassium Chloride Carbon Dioxide Anion Gap BUN Creatinine Creat Clearance w eGFR Random Glucose Lactic Acid 6.3 H* Calcium Phosphorus Magnesium Total Bilirubin Direct Bilirubin 5.2 H AST ALT Alkaline Phosphatase Ammonia Total Protein Albumin Urine Color Urine Appearance Urine pH Ur Specific [place] Urine Protein Urine Glucose (UA) Urine Ketones Urine Blood Urine Nitrite Urine Bilirubin Urine Urobilinogen Ur Leukocyte Esterase Urine RBC Urine WBC Ur Epithelial Cells Urine Bacteria Hyaline Casts Urine Mucus Blood Type Antibody Screen Spec Expiration Date 05/27/17 05/27/17 05/28/17 18:00 19:00 01:26 WBC RBC Hgb Hct MCV MCH MCHC RDW Plt Count MPV Neutrophils % Lymphocytes % Monocytes % Eosinophils % Basophils % Hypochromia Platelet Estimate Anisocytosis Microcytosis Macrocytosis PT with INR INR PTT (Actin FS) Sodium Potassium Chloride Carbon Dioxide Anion Gap BUN Creatinine Creat Clearance w eGFR Random Glucose Lactic Acid Calcium Phosphorus Magnesium Total Bilirubin Cancelled Direct Bilirubin Cancelled AST Cancelled ALT Cancelled Alkaline Phosphatase Cancelled Ammonia Total Protein Cancelled Albumin Cancelled Urine Color Stephany Urine Appearance Slcloudy Urine pH 5.0 Ur Specific [place] 1.025 Urine Protein 1+ H Urine Glucose (UA) Negative Urine Ketones Negative Urine Blood Negative Urine Nitrite Negative Urine Bilirubin 4.0 Urine Urobilinogen 4.0 e.u/dl H Ur Leukocyte Esterase 1+ H Urine RBC 3 Urine WBC 26 Ur Epithelial Cells Rare Urine Bacteria Rare Hyaline Casts 4 Urine Mucus Rare Blood Type Cancelled Antibody Screen Cancelled Spec Expiration Date Cancelled 05/28/17 05/28/17 05/28/17 10:00 10:00 10:00 WBC 10.1 H RBC 3.00 L Hgb 10.2 L D Hct 31.2 L MCV 104.1 H MCH 33.9 H MCHC 32.6 RDW 28.7 H Plt Count 16 L* D MPV 7.0 L D Neutrophils % 72.6 Lymphocytes % 13.7 Monocytes % 13.5 H Eosinophils % 0.1 Basophils % 0.1 Hypochromia Platelet Estimate Anisocytosis Microcytosis Macrocytosis PT with INR INR PTT (Actin FS) Sodium 128 L Potassium 4.5 Chloride 92 L Carbon Dioxide 21 Anion Gap 15 BUN 17 Creatinine 0.5 L D Creat Clearance w eGFR > 60 Random Glucose 92 Lactic Acid 7.6 H* Calcium 7.2 L Phosphorus 1.3 L Magnesium 1.9 Total Bilirubin 6.8 H Direct Bilirubin AST 346 H ALT 114 H Alkaline Phosphatase 345 H Ammonia Total Protein 5.2 L Albumin 1.7 L Urine Color Urine Appearance Urine pH Ur Specific [place] Urine Protein Urine Glucose (UA) Urine Ketones Urine Blood Urine Nitrite Urine Bilirubin Urine Urobilinogen Ur Leukocyte Esterase Urine RBC Urine WBC Ur Epithelial Cells Urine Bacteria Hyaline Casts Urine Mucus Blood Type Antibody Screen Spec Expiration Date 05/28/17 05/28/17 16:05 16:05 WBC 9.2 RBC 2.93 L Hgb 10.2 L Hct 30.5 L MCV 104.1 H MCH 34.7 H MCHC 33.3 RDW 29.2 H Plt Count 22 L* D MPV 8.2 D Neutrophils % Lymphocytes % Monocytes % Eosinophils % Basophils % Hypochromia Platelet Estimate Anisocytosis Microcytosis Macrocytosis PT with INR INR PTT (Actin FS) Sodium Potassium Chloride Carbon Dioxide Anion Gap BUN Creatinine Creat Clearance w eGFR Random Glucose Lactic Acid 8.1 H* Calcium Phosphorus Magnesium Total Bilirubin Direct Bilirubin AST ALT Alkaline Phosphatase Ammonia Total Protein Albumin Urine Color Urine Appearance Urine pH Ur Specific [place] Urine Protein Urine Glucose (UA) Urine Ketones Urine Blood Urine Nitrite Urine Bilirubin Urine Urobilinogen Ur Leukocyte Esterase Urine RBC Urine WBC Ur Epithelial Cells Urine Bacteria Hyaline Casts Urine Mucus Blood Type Antibody Screen Spec Expiration Date Imaging - Results Cat Scan: Report Reviewed Ultrasound: Report Reviewed Problem List - Problems (1) Jaundice Code(s): R17 - UNSPECIFIED JAUNDICE (2) Metastatic breast cancer Code(s): C50.919 - MALIGNANT NEOPLASM OF UNSP SITE OF UNSPECIFIED FEMALE BREAST (3) Metastasis to liver Code(s): C78.7 - SECONDARY MALIG NEOPLASM OF LIVER AND INTRAHEPATIC BILE DUCT Assessment/Plan Acute onset jaundice in settings of multiorgan metastatic liver disease. Progression of the disease and intrahrpatic cholestasis/mass effect is the most likely etiology in this case. Need to r/o extrahepatic biliary outflow obstruction as this may be amendable to palliative CBD stenting. Agree with Abx to cover for cholangitis. All of this, as well as MRCP with pre-exam diazepam was discussed with the patient and her family at bedside in detail. They verbalized understanding and agree with the plan. Discussed with covering FIELD SUPERINTENDENT and nurse. Overall prognosis is very poor
[2017-05-28] MEDS ORDERED: oxyCODONE HCL 5 MG TABLET PO SCH (18:00)
[2017-05-28] MEDS ORDERED: ONDANSETRON 8 MG TABLET (FP) PO SCH (18:00)
[2017-05-28] MEDS ORDERED: diazePAM 5 MG TABLET PO ONE ×2 (18:02)
[2017-05-28] MEDS ORDERED: oxyCODONE HCL 5 MG TABLET PO PRN ×3 (18:23→18:56)
[2017-05-28] MEDS: fentaNYL 25mcg/hr PATCH.TD72 TD SCH (18:50)
[2017-05-28] MEDS ORDERED: LORazepam 0.5 MG TABLET PO ONE (23:17)
[2017-05-29] MEDS: PIPERACILLIN/TAZOB 4.5 GM 100 ML IVPB SCH ×3 (01:23→18:09)
[2017-05-29] MEDS ORDERED: ONDANSETRON 4 MG TABLET PO PRN (03:15)
[2017-05-29] MEDS: oxyCODONE HCL 5 MG TABLET PO PRN ×3 (05:43→21:13)
[2017-05-29 07:18] LABS: BASOPHIL 0.9 % (0-2.0); EOSINOPHIL 0.2 % (0-4.5); MCH 33.6 pg (25.7-33.7); MCHC 32.3 g/dl (32.0-36.0); MEAN CELL VOLUME 103.8 fl (80-96); MEAN PLT VOLUME 7.3 fl (7.5-11.1); NEUTROPHILS 63.2 % (42.8-82.8); RDW 29.2 % (11.6-15.6); WHITE BLOOD COUNT 11.3 K/mm3 (4.0-10.0)
[2017-05-29 07:39] LABS: ALBUMIN 1.7 g/dl (3.4-5.0); ALK PHOS 357 U/L (45-117); ANION GAP 12 (8-16); BILIRUBIN,TOTAL 7.2 mg/dL (0.2-1.0); CO2 23 mmol/L (21-32); CREATININE 0.4 mg/dL (0.55-1.02); GLUCOSE,RANDOM 85 mg/dL (74-106); SGPT/ALT 123 U/L (12-78); TOT PROT 5.2 g/dl (6.4-8.2)
[2017-05-29 07:51] LABS: SGOT/AST 410 U/L (15-37)
[2017-05-29 08:03] LABS: PLATELET COUNT 14 K/MM3 (134-434)
--- NOTE | 2017-05-29 08:33 | PN ---
Progress Note, Physician History of Present Illness: Chart reviewed. No events overnight. Comfortable. No pain,nausea, vomiting, or diarrhea - Current Medication List Current Medications: Active Medications Docusate Sodium (Colace -) 100 mg PO DAILY [facility] Fentanyl (Duragesic 25mcg Patch -) 1 patch TD Q72H [facility] Last Admin: 05/28/17 18:50 Dose: 1 patch Guaifenesin (Robitussin -) 10 ml PO Q6H PRN PRN Reason: COUGH Last Admin: 05/28/17 01:57 Dose: 10 ml Sodium Chloride (Normal Saline -) 1,000 mls @ 75 mls/hr IV ASDIR KAREN Last Admin: 05/28/17 08:09 Dose: 75 mls/hr Vancomycin HCl 1,000 mg/ (Dextrose) 250 mls @ 166.667 mls/hr IVPB BID KAREN PRN Reason: Protocol Last Admin: 05/28/17 22:41 Dose: 166.667 mls/hr Piperacillin/Tazobactam/Dextrose (Zosyn 4.5gm Ivpb (Premix)) 100 mls @ 200 mls/ hr IVPB Q8H-IV KAREN PRN Reason: Protocol Last Admin: 05/29/17 01:23 Dose: 200 mls/hr Ondansetron HCl (Zofran -) 8 mg PO Q8H PRN PRN Reason: NAUSEA Oxycodone HCl (Roxicodone -) 5 mg PO Q4H PRN PRN Reason: PAIN LEVEL 1-5 Last Admin: 05/29/17 05:43 Dose: 5 mg Oxycodone HCl (Roxicodone -) 10 mg PO Q4H PRN PRN Reason: PAIN Senna (Senna -) 1 tab PO DAILY [facility] - Objective Vital Signs: Vital Signs Temperature 97.8 F 05/29/17 06:00 Pulse Rate 120 H 05/29/17 06:00 Respiratory Rate 24 05/29/17 06:00 Blood Pressure 98/58 05/29/17 06:00 O2 Sat by Pulse Oximetry (%) 99 05/28/17 21:00 Constitutional: Yes: No Distress, Calm Eyes: Yes: Sclera Icterus HENT: Yes: Atraumatic Neck: Yes: Supple Cardiovascular: Yes: Regular Rate and Rhythm, Tachycardia Respiratory: Yes: Regular Gastrointestinal: Yes: Normal Bowel Sounds, Soft. No: Tenderness Integumentary: Yes: Jaundice Neurological: Yes: Alert, Oriented Labs: CBC, BMP 05/29/17 06:45 05/29/17 06:45 INR, PTT INR 1.50 (0.82-1.09) H 05/27/17 17:00 CBCD WBC 11.3 K/mm3 (4.0-10.0) H 05/29/17 06:45 RBC 2.94 M/mm3 (3.60-5.2) L 05/29/17 06:45 Hgb 9.9 GM/dL (10.7-15.3) L 05/29/17 06:45 Hct 30.6 % (32.4-45.2) L 05/29/17 06:45 MCV 103.8 fl (80-96) H 05/29/17 06:45 MCHC 32.3 g/dl (32.0-36.0) 05/29/17 06:45 RDW 29.2 % (11.6-15.6) H 05/29/17 06:45 Plt Count 14 K/MM3 (134-434) L* D 05/29/17 06:45 MPV 7.3 fl (7.5-11.1) L D 05/29/17 06:45 CMP Sodium 127 mmol/L (136-145) L 05/29/17 06:45 Potassium 4.9 mmol/L (3.5-5.1) 05/29/17 06:45 Chloride 92 mmol/L (98-107) L 05/29/17 06:45 Carbon Dioxide 23 mmol/L (21-32) 05/29/17 06:45 Anion Gap 12 (8-16) 05/29/17 06:45 BUN 14 mg/dL (7-18) 05/29/17 06:45 Creatinine 0.4 mg/dL (0.55-1.02) L 05/29/17 06:45 Creat Clearance w eGFR > 60 (>60) 05/29/17 06:45 Calcium 7.0 mg/dL (8.5-10.1) L 05/29/17 06:45 Total Bilirubin 7.2 mg/dL (0.2-1.0) H 05/29/17 06:45 AST 410 U/L (15-37) H 05/29/17 06:45 ALT 123 U/L (12-78) H 05/29/17 06:45 Alkaline Phosphatase 357 U/L (45-117) H 05/29/17 06:45 Total Protein 5.2 g/dl (6.4-8.2) L 05/29/17 06:45 Albumin 1.7 g/dl (3.4-5.0) L 05/29/17 06:45 - ....Imaging MRI: Pending Problem List - Problems (1) Jaundice Code(s): R17 - UNSPECIFIED JAUNDICE (2) Metastatic breast cancer Code(s): C50.919 - MALIGNANT NEOPLASM OF UNSP SITE OF UNSPECIFIED FEMALE BREAST (3) Metastasis to liver Code(s): C78.7 - SECONDARY MALIG NEOPLASM OF LIVER AND INTRAHEPATIC BILE DUCT Assessment/Plan Acute onset jaundice in settings of multiorgan metastatic liver disease. MRCP pending, will reorder diazepam to be given 30 min before MRCP. Discussed with nurse.
[2017-05-29] MEDS ORDERED: diazePAM 5 MG TABLET PO ONE (09:15)
[2017-05-29] MEDS ORDERED: DOCUSATE SODIUM 100 MG CAPSULE (FP) PO SCH (10:00)
--- NOTE | 2017-05-29 10:02 | PN ---
Progress Note (short form) - Note Progress Note: Subjective: The patient was seen and examined at the bedside, she reports still with shortness of breath, denies any chest pain Worsening liver enzymes, awaiting MRCP Pleurx drained 10cc today Received records from [facility]. Patient recently admitted in beginning of May for worsening shortness of breath and was treated for pneumonia with short course (5 days) of Ceftriaxone at that time. Chest CTA on 05/08/17 with no central PE but cannot evaluate for segmental or subsegmental emboli. MRI total spine on 04/23/17 with C5-L2 metastasis, 5/5 palliative radiation of spine at that time. Left pleurx placed on 05/11/17 for worsening left pleural effusion Current Medications Generic Name Dose Route Start Last Admin Trade Name Freq PRN Reason Stop Dose Admin Docusate Sodium 100 mg 05/29/17 10:00 05/29/17 10:07 Colace - PO 100 mg DAILY KAREN Administration Fentanyl 1 patch 05/28/17 18:00 05/28/17 18:50 Duragesic 25mcg Patch - TD 1 patch Q72H KAREN Administration Furosemide 20 mg 05/29/17 12:33 Lasix Injection - IVPUSH 05/29/17 18:00 [employer] KAREN Guaifenesin 10 ml 05/28/17 01:34 05/29/17 11:58 Robitussin - PO 10 ml Q6H PRN Administration COUGH Vancomycin HCl 1,000 mg/ 250 mls @ 166.667 mls/hr 05/28/17 13:15 05/29/17 10:07 Dextrose IVPB 166.667 mls/hr BID KAREN Administration Protocol Piperacillin/Tazobactam/Dextrose 100 mls @ 200 mls/hr 05/28/17 13:00 05/29/17 10:07 Zosyn 4.5gm Ivpb (Premix) IVPB 200 mls/hr Q8H-IV KAREN Administration Protocol Sodium Phosphate 15 mm/ Sodium 255 mls @ 62.5 mls/hr 05/29/17 13:15 Chloride IVPB 05/29/17 17:19 ONCE ONE Lactic Acid 1 applic 05/29/17 22:00 Lac-Hydrin 12 TP BID KAREN Methylprednisolone Sodium Succinate 40 mg 05/29/17 13:00 Solu-Medrol - IVPUSH DAILY KARNE Ondansetron HCl 8 mg 05/29/17 03:15 Zofran - PO Q8H PRN NAUSEA Oxycodone HCl 5 mg 05/28/17 18:56 05/29/17 10:07 Roxicodone - PO 5 mg Q4H PRN Administration PAIN LEVEL 1-5 Oxycodone HCl 10 mg 05/28/17 18:56 Roxicodone - PO Q4H PRN PAIN Potassium Phos/Sodium Phos 1 packet 05/29/17 22:00 Phos-Nak Packet - PO BID KAREN Senna 1 tab 05/29/17 10:00 05/29/17 10:07 Senna - PO 1 tab DAILY KAREN Administration Objective: Vital Signs Period Temp Pulse Resp BP Sys/[place] Pulse Ox Last 24 Hr 97.5 F-98.2 F 110-122 22-30 94-101/45-68 97-99 Physical Exam: General: NAD, A&Ox3 HEENT: Sclera icteric Lungs: Tachypnic. Decreased breath sounds bilaterally, greater on the left. Left PleurX in place Heart: Tachycardia. S1S2 Abd: Soft, non-tender, non-distended. Normoactive bowel sounds Ext: B/l lower extremities with 3+ pitting edema. 2+ DP/PT bilaterally Skin: Right breast fungating, erythematous Neuro: CN 2-12 intact CBCD WBC 11.3 K/mm3 (4.0-10.0) H 05/29/17 06:45 RBC 2.94 M/mm3 (3.60-5.2) L 05/29/17 06:45 Hgb 9.9 GM/dL (10.7-15.3) L 05/29/17 06:45 Hct 30.6 % (32.4-45.2) L 05/29/17 06:45 MCV 103.8 fl (80-96) H 05/29/17 06:45 MCHC 32.3 g/dl (32.0-36.0) 05/29/17 06:45 RDW 29.2 % (11.6-15.6) H 05/29/17 06:45 Plt Count 14 K/MM3 (134-434) L* D 05/29/17 06:45 MPV 7.3 fl (7.5-11.1) L D 05/29/17 06:45 CMP Sodium 127 mmol/L (136-145) L 05/29/17 06:45 Potassium 4.9 mmol/L (3.5-5.1) 05/29/17 06:45 Chloride 92 mmol/L (98-107) L 05/29/17 06:45 Carbon Dioxide 23 mmol/L (21-32) 05/29/17 06:45 Anion Gap 12 (8-16) 05/29/17 06:45 BUN 14 mg/dL (7-18) 05/29/17 06:45 Creatinine 0.4 mg/dL (0.55-1.02) L 05/29/17 06:45 Creat Clearance w eGFR > 60 (>60) 05/29/17 06:45 Random Glucose 85 mg/dL (74-106) 05/29/17 06:45 Calcium 7.0 mg/dL (8.5-10.1) L 05/29/17 06:45 Total Bilirubin 7.2 mg/dL (0.2-1.0) H 05/29/17 06:45 AST 410 U/L (15-37) H 05/29/17 06:45 ALT 123 U/L (12-78) H 05/29/17 06:45 Alkaline Phosphatase 357 U/L (45-117) H 05/29/17 06:45 Total Protein 5.2 g/dl (6.4-8.2) L 05/29/17 06:45 Albumin 1.7 g/dl (3.4-5.0) L 05/29/17 06:45 Microbiology 05/28/17 01:26 Urine - Urine Clean Catch Urine Culture - Final Contaminated: Please Repeat 05/27/17 16:47 Blood - Peripheral Venous Blood Culture - Preliminary NO GROWTH OBTAINED AFTER 24 HOURS, INCUBATION TO CONTINUE FOR 4 DAYS. 05/27/17 16:47 Blood - Peripheral Venous Blood Culture - Preliminary NO GROWTH OBTAINED AFTER 24 HOURS, INCUBATION TO CONTINUE FOR 4 DAYS. 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 Plan: 1) Shortness of breath - Progression of disease vs. PE vs. worsening pleural effusion - PleurX drained 20ml yesterday and 10ml today - Discussed with the patient possibility of PE, however unable to treat at this time due to severe thrombocytopenia. Patient and family aware of this - Will defer chest CTA at this time (patient refused) and it will not change the current management given severe thrombocytopenia - Possible superimposed pneumonia, continue Vancomycin and Zosyn. Follow cultures. Repeat urine culture as the first was contaminated - O2 via NC prn - Appreciate pulmonary consult 2) Lymphangitic carcinomatosis - Discussed with Dr. Mackenzie, may benefit from low dose steroids at this time to improve breathing - Will start Solu-medrol with caution given overload 2) Type B lactic acidosis - 2/2 extensive metastatic disease - Continue to trend 3) Transaminitis - Labs from 05/13 reveal total bilirubin 1, AST 238, ALT 78, Alk phos 199 - Worsening here - Patient jaundice with icteric sclera - Liver ultrasound with diffuse nonspecific hepatic heterogeneity. Small amount of perihepatic ascites. No obvious evidence of cholelithiasis. Borderline gallbladder wall thickness. Moderate amount of inspissated bile/sludge within the gallbladder lumen. Common bile duct appears to be slightly prominent with a 0.7cm diameter - MRCP per GI - Appreciate GI consult 4) Hyperammonemia - F/u level today, Lactulose if remains elevated 5) Triple negative metastatic breast cancer to liver, lung, chest wall, pleura, bone - Per Dr. Wills's RN, patient had progression of disease on Gemcitabine and Carboplatin. Was given Eribulin on 03/31/17 and was scheduled for round 2 of Eribulin on 05/27 - S/p 5/ palliative spine RT 04/2017 6) Left lung chronic pleural effusion with PleurX - Drain prn 7) B/l lower extremity edema - Doppler negative for DVT b/l - Lymphadema wrap with improvement in edema 8) F/E/N: - Monitor electrolytes - Hypophosphatemia: replete - Hyponatremia: F/u urine studies. Will then trial Lasix 20mg once and recheck BMP after 9) Prophylaxis: - Hold all chemical DVT prophylaxis 2/2 severe thrombocytopenia - SCDs bilaterally 10) Dispo: - Requires continued inpatient care - Had discussion about DNR/DNI with patient and family at the bedside. The mother stated in [place] and was translated to me in [place]ic "we don't believe in mechanical ventilation". They stated they are not ready at this time to put anything into writing and will discuss it as a family when I leave CODE STATUS: FULL CODE Visit type - Emergency Visit Emergency Visit: Yes ED Registration Date: 05/28/17 Care time: The patient presented to the Emergency Department on the above date and was hospitalized for further evaluation of their emergent condition. - New Patient This patient is new to me today: No - Critical Care Critical Care patient: No
[2017-05-29] MEDS ORDERED: PT OWN MED DRAWER 7, Y5N ONE ×2 (10:03→21:07)
[2017-05-29] MEDS: SENNOSIDES 8.6MG TABLET (FP) PO SCH (10:07)
[2017-05-29] MEDS: DOCUSATE SODIUM 100 MG CAPSULE (FP) PO SCH (10:07)
[2017-05-29] MEDS: VANCOMYCIN 1,000 MG in DEXTROSE 5%-WATER - 250 ML IVPB SCH ×2 (10:07→21:11)
[2017-05-29 10:58] LABS: ARTERIAL BLD GAS O2 SATURATION 98.9 % (90-98.9); ARTERIAL BLOOD GAS BASE EXCESS -1.7 meq/l (-2-2); ARTERIAL BLOOD GAS HCO3 21.2 meq/L (22-26); ARTERIAL BLOOD GAS PO2 95.7 mmHg (80-100); ARTERIAL BLOOD GAS pH 7.45 (7.35-7.45)
[2017-05-29 10:59] LABS: ALLENS TEST POSITIVE; ART PUNCT SITE LEFT RADIAL; LPM/O2% 2L; PT. ON O2? YES; TYPE OF O2 NASAL O2
[2017-05-29] MEDS: guaiFENesin 200 MG/10 ML 10 ML UNIT-DOSE CUPS PO PRN (11:58)
[2017-05-29] MEDS: SODIUM CHLORIDE 1,000 ML IV SCH (11:58)
[2017-05-29] MEDS ORDERED: FUROSEMIDE 40 MG/4 ML INJECTABLE VIAL IVPUSH SCH (12:33)
--- NOTE | 2017-05-29 12:34 | CON.NEP ---
Consult Consult Specialty:: Nephrology Referred by:: MARCELLE Blackmon Reason for Consultation:: Hyponatremia, fluid overload - History of Present Illness Chief Complaint: SOB, LE edema History of Present Illness: This is a 41 year old woman with PMhx of metastatic Breast CA who presented with complaints of sob, LE swelling and cough and found to have pleaural effusions, LE edema, mild ascities and Na of 126. Pt state that she has been having progressive swelling of her LE for the last several weeks. No calf pain. Pt was not on diuretics at home. Reports poor solute intake but has been drinking about ~1 to 1.5L of water daily. No confusion, lethargy, weakness, seizures. Making urine. - History Source History Provided By: Patient, Family Member Limitations to Obtaining History: No Limitations - Past Medical History Pulmonary: Yes: Other (see hpi, H&P) Hepatobiliary: Yes: Other (see hpi) - Past Surgical History Additional Surgical History: mastectomy, plurex - Alcohol/Substance Use Hx Alcohol Use: No - Smoking History Smoking history: Never smoked Have you smoked in the past 12 months: No Home Medications - Allergies Allergies/Adverse Reactions: Allergies Allergy/AdvReac Type Severity Reaction Status Date / Time No Known Allergies Allergy Verified 05/27/17 15:13 - Home Medications Home Medications: Ambulatory Orders Docusate Sodium 100 mg PO DAILY 05/27/17 FENTANYL 25mcg PATCH [DURAGESIC 25mcg PATCH -] 1 each TD Q72H 05/27/17 Ondansetron HCl [Zofran] 8 mg PO PRN 05/27/17 Oxycodone HCl 5 mg PO PRN 05/27/17 Sennosides [Senna] 8.6 mg PO DAILY 05/27/17 Family Disease History - Family Disease History Family History: Unremarkable Review of Systems - Review of Systems Constitutional: reports: Loss of Appetite, Malaise, Weakness. denies: Fever, Lethargy Eyes: reports: No Symptoms HENT: reports: No Symptoms Neck: reports: No Symptoms Cardiovascular: reports: Edema, Shortness of Breath. denies: Chest Pain, Palpitations Respiratory: reports: Cough, SOB, SOB on Exertion. denies: Orthopnea, PND Gastrointestinal: denies: Abdominal Pain, Diarrhea Genitourinary: denies: Burning, Discharge, Dysuria, Flank Pain Musculoskeletal: reports: No Symptoms Neurological: reports: No Symptoms Nephrology Consult - Height Height: 5 ft 5 in - Weight Weight: 145 lb - BMI Body Mass Index (BMI): 24.1 - Lab Results CBC,BMP: CBC, BMP 05/29/17 06:45 05/29/17 06:45 Anion Gap: Anion Gap Anion Gap 12 (8-16) 05/29/17 06:45 - Imaging Chest X-ray: Report Reviewed - Physical Examination Vital Signs: Vital Signs Temperature 98.2 F 05/29/17 10:00 Pulse Rate 120 H 05/29/17 10:00 Respiratory Rate 22 05/29/17 10:00 Blood Pressure 96/63 05/29/17 10:00 O2 Sat by Pulse Oximetry (%) 99 05/28/17 21:00 Constitutional: Yes: Well Nourished, No Distress, Calm Eyes: Yes: Conjunctiva Clear HENT: Yes: Atraumatic Neck: Yes: Supple Cardiovascular: Yes: Regular Rate and Rhythm, S1, S2. No: JVD, Murmur, Rub Respiratory: Yes: Regular, Diminished Gastrointestinal: Yes: Normal Bowel Sounds, Soft. No: Tenderness Renal/: No: Bladder Distention Edema: Yes Edema: LLE: 1+, RLE: 1+ Peripheral Pulses WNL: Yes Neurological: Yes: Alert, Oriented Problem List - Problems (1) Liver failure Code(s): K72.90 - HEPATIC FAILURE, UNSPECIFIED WITHOUT COMA Qualifiers: Liver failure chronicity: acute Hepatic coma status: without hepatic coma Qualified Code(s): K72.00 - Acute and subacute hepatic failure without coma; K72.00 - Acute and subacute hepatic failure without coma (2) Metastasis to liver Code(s): C78.7 - SECONDARY MALIG NEOPLASM OF LIVER AND INTRAHEPATIC BILE DUCT (3) Metastatic breast cancer Code(s): C50.919 - MALIGNANT NEOPLASM OF UNSP SITE OF UNSPECIFIED FEMALE BREAST (4) Pleural effusion Code(s): J90 - PLEURAL EFFUSION, NOT ELSEWHERE CLASSIFIED (5) Hyponatremia Code(s): E87.1 - HYPO-OSMOLALITY AND HYPONATREMIA Assessment/Plan 41 year old woman with PMhx of metastatic Breast CA who presented with complaints of sob, LE swelling and cough and found to have pleural effusions, LE edema, mild ascities and Na of 126. #Hypervolemic hyponatremia in setting of Liver Mets/Metastatic Breast Ca Check Serum Osm, Urine Osm, Urine Na levels Check TSH and Cortisol in the AM D/C Normal saline as pt is volume overloaded Give Lasix 20mg IVP x 1 after urine studies are collected Repeat BMP this evening to monitor response to Lasix Increase solute intake Free water restriction of 1.2L daily No indication for 3% saline #Type B Lactic acidosis in setting of Malignancy/Liver disease No eveidence of hypoperfusion to suggest type A lactic acidosis Trend lactic acid levels supportive care #Breast Ca with Liver Mets Oncology follow up Pleural drainage via pleurex as needed GI consult noted Consider transfer to [facility] Thank you Will Follow Venu Weems DO
--- NOTE | 2017-05-29 12:42 | CON.PULM ---
Consult Consult Specialty:: PULM/CCM Referred by:: THUY Reason for Consultation:: SOB - History of Present Illness Chief Complaint: SOB History of Present Illness: 41 F, with listed medical history. Metastatic Breast CA, ascites, LE edema, left PleureX catheter placement. Admitted via the ER due to progressive LE edema. She reports a mild, but somewhat chronic dry cough. No hemoptysis. Family is at the bedside. They have been draining between 5cc to 50cc from the PleureX intermittently. Concern for a PE was brought up. Due to severe thrombocytopenia we would not be able to safely treat. Would hold off on CTA (patient defers as well). No obvious clinical symptoms consistent with PNA, but due to complicated picture , empiric ABX given. - History Source History Provided By: Patient Limitations to Obtaining History: No Limitations - Past Medical History Pulmonary: Yes: Other (see hpi, H&P) Hepatobiliary: Yes: Other (see hpi) - Past Surgical History Additional Surgical History: mastectomy, plurex - Alcohol/Substance Use Hx Alcohol Use: No - Smoking History Smoking history: Never smoked Have you smoked in the past 12 months: No Home Medications - Allergies Allergies/Adverse Reactions: Allergies Allergy/AdvReac Type Severity Reaction Status Date / Time No Known Allergies Allergy Verified 05/27/17 15:13 - Home Medications Home Medications: Ambulatory Orders Docusate Sodium 100 mg PO DAILY 05/27/17 FENTANYL 25mcg PATCH [DURAGESIC 25mcg PATCH -] 1 each TD Q72H 05/27/17 Ondansetron HCl [Zofran] 8 mg PO PRN 05/27/17 Oxycodone HCl 5 mg PO PRN 05/27/17 Sennosides [Senna] 8.6 mg PO DAILY 05/27/17 Review of Systems - Review of Systems Constitutional: reports: Malaise, Weakness. denies: Chills, Fever, Night Sweats Eyes: reports: No Symptoms HENT: reports: No Symptoms Neck: reports: No Symptoms Cardiovascular: reports: Edema, Shortness of Breath. denies: Chest Pain, Palpitations Respiratory: reports: Cough, Orthopnea, SOB, SOB on Exertion. denies: Hemoptysis, Snoring, Wheezing Gastrointestinal: reports: Bloating. denies: Rectal Bleeding, Vomiting Blood Genitourinary: reports: Urgency Breasts: reports: See HPI, Skin Changes Musculoskeletal: reports: Back Pain Integumentary: reports: Bruising Neurological: reports: No Symptoms Endocrine: reports: No Symptoms Hematology/Lymphatic: reports: Easily Bruised Psychiatric: reports: No Symptoms Physical Exam Vital Sings: Vital Signs Temperature 98.2 F 05/29/17 10:00 Pulse Rate 120 H 05/29/17 10:00 Respiratory Rate 22 05/29/17 10:00 Blood Pressure 96/63 05/29/17 10:00 O2 Sat by Pulse Oximetry (%) 99 05/28/17 21:00 Constitutional: Yes: No Distress Eyes: Yes: Sclera Icterus HENT: Yes: Atraumatic, Normocephalic Neck: Yes: Supple, Trachea Midline Cardiovascular: Yes: Tachycardia Respiratory: Yes: Cough, Dullness, On Nasal O2, Rhonchi. No: Accessory Muscle Use, Stridor, Tachypnea, Wheezes ...Inspection: Yes: Other (breast mass / skin changes ) ...Clubbing: No Gastrointestinal: Yes: WNL, Normal Bowel Sounds, Soft Musculoskeletal: Yes: Back Pain Extremities: Yes: Cool. No: Calf Tenderness Edema: Yes Peripheral Pulses WNL: Yes Integumentary: Yes: WNL Neurological: Yes: WNL, Alert, Oriented Psychiatric: Yes: WNL, Alert, Oriented Labs: CBC, BMP 05/29/17 06:45 05/29/17 06:45 ABG Results ABG pH 7.45 (7.35-7.45) 05/29/17 10:35 ABG pCO2 at Pt Temp 30.9 mmHg (35-45) L 05/29/17 10:35 ABG pO2 at Pt Temp 95.7 mmHg (80-100) 05/29/17 10:35 ABG HCO3 21.2 meq/L (22-26) L 05/29/17 10:35 ABG O2 Sat (Measured) 98.9 % (90-98.9) 05/29/17 10:35 ABG O2 Content 12.9 % vol (15-22) L 05/29/17 10:35 ABG Base Excess -1.7 meq/l (-2-2) 05/29/17 10:35 Imaging - Results Chest X-ray: Report Reviewed, Image Reviewed Problem List - Problems (1) Dyspnea Code(s): R06.00 - DYSPNEA, UNSPECIFIED Qualifiers: Dyspnea type: unspecified Qualified Code(s): R06.00 - Dyspnea, unspecified; R06.00 - Dyspnea, unspecified (2) Hepatic encephalopathy syndrome Code(s): K72.90 - HEPATIC FAILURE, UNSPECIFIED WITHOUT COMA (3) Hyponatremia Code(s): E87.1 - HYPO-OSMOLALITY AND HYPONATREMIA (4) Jaundice Code(s): R17 - UNSPECIFIED JAUNDICE (5) Metastasis to liver Code(s): C78.7 - SECONDARY MALIG NEOPLASM OF LIVER AND INTRAHEPATIC BILE DUCT (6) Metastatic breast cancer Code(s): C50.919 - MALIGNANT NEOPLASM OF UNSP SITE OF UNSPECIFIED FEMALE BREAST (7) Pleural effusion Code(s): J90 - PLEURAL EFFUSION, NOT ELSEWHERE CLASSIFIED Assessment/Plan PleureX drainage PRN : doubt small volumes being obtained would make an objective difference Lasix Humidified O2 ABX per ID Daily weight Supportive care Will follow Thank you. Dr Allred
[2017-05-29] MEDS ORDERED: SODIUM PHOSPHATE - 15 MM in SODIUM CHLORIDE 250 ML IVPB ONE (13:15)
[2017-05-29] MEDS: methylPREDNISolone NA SUCC 40 MG/1 ML VIAL IVPUSH SCH (13:40)
--- NOTE | 2017-05-29 15:11 | PN ---
Progress Note (short form) - Note Progress Note: no complaints seen by GI MRCP ordered Vital Signs Period Temp Pulse Resp BP Sys/[place] Pulse Ox Last 24 Hr 97.5 F-98.2 F 110-122 22-30 94-101/45-68 97-99 +icterus cor-rrr lungs decreased bs at bases abd +liver edge, NG=Text +edema +port left chest wall CBC, BMP 05/29/17 06:45 05/29/17 06:45 Microbiology 05/28/17 01:26 Urine - Urine Clean Catch Urine Culture - Final Contaminated: Please Repeat 05/27/17 16:47 Blood - Peripheral Venous Blood Culture - Preliminary NO GROWTH OBTAINED AFTER 24 HOURS, INCUBATION TO CONTINUE FOR 4 DAYS. 05/27/17 16:47 Blood - Peripheral Venous Blood Culture - Preliminary NO GROWTH OBTAINED AFTER 24 HOURS, INCUBATION TO CONTINUE FOR 4 DAYS. a/p metastic breast cancer new abnormal LFTS to continue antibiotics for possible biliary infection until cultures and MRCP are back continue zosyn and vancomycin lactic acidosis most likely due to malignancy
[2017-05-29 18:41] LABS: MCH 34.8 pg (25.7-33.7); MCHC 33.8 g/dl (32.0-36.0); MEAN CELL VOLUME 102.7 fl (80-96); MEAN PLT VOLUME 7.8 fl (7.5-11.1); PLATELET COUNT 12 K/MM3 (134-434); RDW 29.3 % (11.6-15.6); WHITE BLOOD COUNT 8.6 K/mm3 (4.0-10.0)
[2017-05-29 19:27] LABS: ANION GAP 11 (8-16); CO2 24 mmol/L (21-32); CREATININE 0.4 mg/dL (0.55-1.02); GLUCOSE,RANDOM 91 mg/dL (74-106)
[2017-05-29 19:34] LABS: CALCIUM 6.8 mg/dL (8.5-10.1)
[2017-05-29] MEDS: NAPH,MB-DB/K PH,MBDB POWDER PACKET PO SCH (21:14)
[2017-05-29] MEDS: AMMONIUM LACTATE 12% LOTION 225 GM BOTTLE TP SCH (21:14)
[2017-05-30] MEDS: PIPERACILLIN/TAZOB 4.5 GM 100 ML IVPB SCH ×3 (02:57→18:12)
[2017-05-30] MEDS ORDERED: diazePAM 5 MG TABLET PO ONE ×2 (05:52→16:15)
[2017-05-30] MEDS ORDERED: ALPRAZolam 0.25 MG TABLET PO ONE (05:53)
[2017-05-30 07:46] LABS: BASOPHIL 0.1 % (0-2.0); MCH 34.7 pg (25.7-33.7); MCHC 33.1 g/dl (32.0-36.0); MEAN CELL VOLUME 104.8 fl (80-96); NEUTROPHILS 66.2 % (42.8-82.8); RDW 28.6 % (11.6-15.6); WHITE BLOOD COUNT 10.1 K/mm3 (4.0-10.0)
[2017-05-30 08:13] LABS: MEAN PLT VOLUME 4.6 fl (7.5-11.1)
[2017-05-30 08:18] LABS: PLATELET COUNT 6 K/MM3 (134-434)
[2017-05-30 08:34] LABS: ALBUMIN 1.7 g/dl (3.4-5.0); ALK PHOS 456 U/L (45-117); ANION GAP 13 (8-16); BILIRUBIN,TOTAL 7.2 mg/dL (0.2-1.0); CO2 23 mmol/L (21-32); CREATININE 0.4 mg/dL (0.55-1.02); GLUCOSE,RANDOM 70 mg/dL (74-106); MAGNESIUM 1.9 mg/dL (1.8-2.4); PHOSPHOROUS 1.3 mg/dL (2.5-4.9); SGPT/ALT 252 U/L (12-78); THYROID STIMULATING HORMONE 2.15 uIU/ml (0.358-3.74)
[2017-05-30] MEDS ORDERED: PT OWN MED DRAWER 7, Y5N ONE ×2 (08:59→16:55)
[2017-05-30 09:10] LABS: CALCIUM 6.8 mg/dL (8.5-10.1); SGOT/AST 1220 U/L (15-37)
--- NOTE | 2017-05-30 09:11 | PN ---
Progress Note, Physician Chief Complaint: ID Discussed with MINE DEVELOPMENT ENGINEER regarding the fact that transfer did not occur She remains afebrile Vanco and Zosyn - Current Medication List Current Medications: Active Medications Docusate Sodium (Colace -) 100 mg PO DAILY [facility] Last Admin: 05/29/17 10:07 Dose: 100 mg Fentanyl (Duragesic 25mcg Patch -) 1 patch TD Q72H KAREN Last Admin: 05/28/17 18:50 Dose: 1 patch Guaifenesin (Robitussin -) 10 ml PO Q6H PRN PRN Reason: COUGH Last Admin: 05/29/17 11:58 Dose: 10 ml Vancomycin HCl 1,000 mg/ (Dextrose) 250 mls @ 166.667 mls/hr IVPB BID KAREN PRN Reason: Protocol Last Admin: 05/29/17 21:11 Dose: 166.667 mls/hr Piperacillin/Tazobactam/Dextrose (Zosyn 4.5gm Ivpb (Premix)) 100 mls @ 200 mls/ hr IVPB Q8H-IV KAREN PRN Reason: Protocol Last Admin: 05/30/17 02:57 Dose: 200 mls/hr Lactic Acid (Lac-Hydrin 12) 1 applic TP BID [facility] Last Admin: 05/29/17 21:14 Dose: 1 applic Methylprednisolone Sodium Succinate (Solu-Medrol -) 40 mg IVPUSH DAILY [facility] Last Admin: 05/29/17 13:40 Dose: 40 mg Ondansetron HCl (Zofran -) 8 mg PO Q8H PRN PRN Reason: NAUSEA Oxycodone HCl (Roxicodone -) 5 mg PO Q4H PRN PRN Reason: PAIN LEVEL 1-5 Last Admin: 05/29/17 21:13 Dose: 5 mg Oxycodone HCl (Roxicodone -) 10 mg PO Q4H PRN PRN Reason: PAIN Potassium Phos/Sodium Phos (Phos-Nak Packet -) 1 packet PO BID [facility] Last Admin: 05/29/17 21:14 Dose: 1 packet Senna (Senna -) 1 tab PO DAILY [facility] Last Admin: 05/29/17 10:07 Dose: 1 tab - Objective Vital Signs: Vital Signs Temperature 97.7 F 05/30/17 05:00 Pulse Rate 105 H 05/30/17 05:00 Respiratory Rate 20 05/30/17 05:00 Blood Pressure 100/68 05/30/17 05:00 O2 Sat by Pulse Oximetry (%) 100 05/29/17 20:12 Constitutional: Yes: Cachectic, Thin HENT: No: Thrush Cardiovascular: Yes: Regular Rate and Rhythm, S1, S2. No: Tachycardia, Murmur Respiratory: Yes: WNL, Regular, CTA Bilaterally. No: Rales, Rhonchi Gastrointestinal: Yes: Soft. No: Tenderness, Tenderness, Rebound Edema: Yes Labs: CBC, BMP 05/30/17 06:00 INR, PTT INR 1.50 (0.82-1.09) H 05/27/17 17:00 Problem List - Problems (1) Metastasis to liver Code(s): C78.7 - SECONDARY MALIG NEOPLASM OF LIVER AND INTRAHEPATIC BILE DUCT (2) Metastatic breast cancer Code(s): C50.919 - MALIGNANT NEOPLASM OF UNSP SITE OF UNSPECIFIED FEMALE BREAST (3) Biliary obstruction Code(s): K83.1 - OBSTRUCTION OF BILE DUCT Assessment/Plan Microbiology 05/28/17 01:26 Urine - Urine Clean Catch Urine Culture - Final Contaminated: Please Repeat 05/27/17 16:47 Blood - Peripheral Venous Blood Culture - Preliminary NO GROWTH OBTAINED AFTER 48 HOURS, INCUBATION TO CONTINUE FOR 3 DAYS. 05/27/17 16:47 Blood - Peripheral Venous Blood Culture - Preliminary NO GROWTH OBTAINED AFTER 48 HOURS, INCUBATION TO CONTINUE FOR 3 DAYS. Laboratory Tests 05/27/17 05/27/17 05/28/17 16:47 17:00 01:26 WBC Hgb Hct Plt Count INR 1.50 H BUN Creatinine Lactic Acid 6.3 H* Total Bilirubin AST ALT Alkaline Phosphatase Urine RBC 3 05/28/17 05/28/17 05/28/17 10:00 16:05 22:00 WBC Hgb Hct Plt Count INR BUN Creatinine Lactic Acid 7.6 H* 8.1 H* 7.3 H* Total Bilirubin AST ALT Alkaline Phosphatase Urine RBC 05/29/17 05/29/17 05/29/17 06:45 06:45 18:00 WBC Hgb Hct Plt Count INR BUN 12 Creatinine 0.4 L Lactic Acid 6.5 H* Total Bilirubin 7.2 H AST 410 H ALT 123 H Alkaline Phosphatase 357 H Urine RBC 05/30/17 06:00 WBC 10.1 H Hgb 9.8 L Hct 29.7 L Plt Count 6 L* D INR BUN Creatinine Lactic Acid Total Bilirubin AST ALT Alkaline Phosphatase Urine RBC Assessment Metastatic breast CA Severe thrombocytopenia ? etiology mets to bone marrow Biliary obstruction secondary cancer Doubt cholangitis clinically Plan Consider oncology evaluation if she is not going to be transferred Stop Tracieo Continue Susannah MRCP Bhanu MILLER
[2017-05-30] MEDS: methylPREDNISolone NA SUCC 40 MG/1 ML VIAL IVPUSH SCH (09:27)
[2017-05-30] MEDS: SENNOSIDES 8.6MG TABLET (FP) PO SCH (09:27)
[2017-05-30] MEDS: NAPH,MB-DB/K PH,MBDB POWDER PACKET PO SCH ×2 (09:28→22:17)
[2017-05-30] MEDS: DOCUSATE SODIUM 100 MG CAPSULE (FP) PO SCH (09:28)
[2017-05-30] MEDS: AMMONIUM LACTATE 12% LOTION 225 GM BOTTLE TP SCH ×2 (09:28→22:18)
[2017-05-30] MEDS ORDERED: SODIUM PHOSPHATE - 15 MM in SODIUM CHLORIDE 250 ML IVPB ONE (10:00)
[2017-05-30] MEDS: guaiFENesin 200 MG/10 ML 10 ML UNIT-DOSE CUPS PO PRN ×2 (10:05→16:53)
--- NOTE | 2017-05-30 10:41 | PN ---
Progress Note (short form) - Note Progress Note: Subjective: The patient was seen and examined at the bedside, she reports still with shortness of breath, denies any chest pain. Has dry cough Platelets 6 today, will transfuse 1 unit Called [facility] [place], awaiting bed for transfer Current Medications Generic Name Dose Route Start Last Admin Trade Name Freq PRN Reason Stop Dose Admin Docusate Sodium 100 mg 05/29/17 10:00 05/30/17 09:28 Colace - PO 100 mg DAILY KAREN Administration Fentanyl 1 patch 05/28/17 18:00 05/28/17 18:50 Duragesic 25mcg Patch - TD 1 patch Q72H KAREN Administration Guaifenesin 10 ml 05/28/17 01:34 05/29/17 11:58 Robitussin - PO 10 ml Q6H PRN Administration COUGH Piperacillin/Tazobactam/Dextrose 100 mls @ 200 mls/hr 05/28/17 13:00 05/30/17 09:27 Zosyn 4.5gm Ivpb (Premix) IVPB 200 mls/hr Q8H-IV KAREN Administration Protocol Sodium Phosphate 15 mm/ Sodium 255 mls @ 62.5 mls/hr 05/30/17 10:00 Chloride IVPB 05/30/17 14:04 ONCE ONE Lactic Acid 1 applic 05/29/17 22:00 05/30/17 09:28 Lac-Hydrin 12 TP 1 applic BID KAREN Administration Methylprednisolone Sodium Succinate 40 mg 05/29/17 13:00 05/30/17 09:27 Solu-Medrol - IVPUSH 40 mg DAILY KAREN Administration Ondansetron HCl 8 mg 05/29/17 03:15 Zofran - PO Q8H PRN NAUSEA Oxycodone HCl 5 mg 05/28/17 18:56 05/29/17 21:13 Roxicodone - PO 5 mg Q4H PRN Administration PAIN LEVEL 1-5 Oxycodone HCl 10 mg 05/28/17 18:56 Roxicodone - PO Q4H PRN PAIN Potassium Phos/Sodium Phos 1 packet 05/29/17 22:00 05/30/17 09:28 Phos-Nak Packet - PO 1 packet BID KAREN Administration Senna 1 tab 05/29/17 10:00 05/30/17 09:27 Senna - PO 1 tab DAILY KAREN Administration Objective: Vital Signs Period Temp Pulse Resp BP Sys/[place] Pulse Ox Last 24 Hr 97.0 F-98.2 F 102-117 18-24 91-114/63-88 100 Physical Exam: General: NAD, A&Ox3 HEENT: Sclera icteric Lungs: Tachypnic. Decreased breath sounds bilaterally, greater on the left. Left PleurX in place Heart: Tachycardia. S1S2 Abd: Soft, non-tender, non-distended. Normoactive bowel sounds Ext: B/l lower extremities with 3+ pitting edema. 2+ DP/PT bilaterally Skin: Right breast fungating tumor Neuro: CN 2-12 intact CBCD WBC 10.1 K/mm3 (4.0-10.0) H 05/30/17 06:00 RBC 2.83 M/mm3 (3.60-5.2) L 05/30/17 06:00 Hgb 9.8 GM/dL (10.7-15.3) L 05/30/17 06:00 Hct 29.7 % (32.4-45.2) L 05/30/17 06:00 MCV 104.8 fl (80-96) H 05/30/17 06:00 MCHC 33.1 g/dl (32.0-36.0) 05/30/17 06:00 RDW 28.6 % (11.6-15.6) H 05/30/17 06:00 Plt Count 6 K/MM3 (134-434) L* D 05/30/17 06:00 MPV 4.6 fl (7.5-11.1) L 05/30/17 06:00 CMP Sodium 126 mmol/L (136-145) L 05/30/17 06:00 Potassium 4.8 mmol/L (3.5-5.1) 05/30/17 06:00 Chloride 90 mmol/L (98-107) L 05/30/17 06:00 Carbon Dioxide 23 mmol/L (21-32) 05/30/17 06:00 Anion Gap 13 (8-16) 05/30/17 06:00 BUN 15 mg/dL (7-18) D 05/30/17 06:00 Creatinine 0.4 mg/dL (0.55-1.02) L 05/30/17 06:00 Creat Clearance w eGFR > 60 (>60) 05/30/17 06:00 Random Glucose 70 mg/dL (74-106) L D 05/30/17 06:00 Calcium 6.8 mg/dL (8.5-10.1) L* 05/30/17 06:00 Total Bilirubin 7.2 mg/dL (0.2-1.0) H 05/30/17 06:00 AST 1220 U/L (15-37) H 05/30/17 06:00 ALT 252 U/L (12-78) H D 05/30/17 06:00 Alkaline Phosphatase 456 U/L (45-117) H D 05/30/17 06:00 Total Protein 5.0 g/dl (6.4-8.2) L 05/30/17 06:00 Albumin 1.7 g/dl (3.4-5.0) L 05/30/17 06:00 Microbiology 05/27/17 16:47 Blood - Peripheral Venous Blood Culture - Preliminary NO GROWTH OBTAINED AFTER 48 HOURS, INCUBATION TO CONTINUE FOR 3 DAYS. 05/27/17 16:47 Blood - Peripheral Venous Blood Culture - Preliminary NO GROWTH OBTAINED AFTER 48 HOURS, INCUBATION TO CONTINUE FOR 3 DAYS. 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 Plan: 1) Severe thrombocytopenia - Platelets 6 today, will transfusion - Check platelets this PM, transfuse if <10 - F/u hematology consult 2) Shortness of breath - Progression of disease vs. PE vs. worsening pleural effusion - PleurX draining minimally, continue PRN drainage - Discussed with the patient possibility of PE, however unable to treat at this time due to severe thrombocytopenia. Patient and family aware of this - Will defer chest CTA at this time (patient refused) as it will not change the current management given severe thrombocytopenia - Possible superimposed pneumonia? Doubt per ID, Vancomycin discontinued today, continue Zosyn for now - O2 via NC prn - Appreciate pulmonary consult 3) Lymphangitic carcinomatosis - Discussed with Dr. Mackenzie, may benefit from low dose steroids at this time to improve breathing - Started Solu-medrol yesterday, some anxiety overnight possibly 2/2 steroids, will discuss with pulmonary decreasing dosage 4) Type B lactic acidosis - 2/2 extensive metastatic disease - Continue to trend 5) Transaminitis - Labs from 05/13 reveal total bilirubin 1, AST 238, ALT 78, Alk phos 199 - Worsening today - Patient jaundice with icteric sclera - Will continue Zosyn for now for possible biliary obstruction/cholangitis - Liver ultrasound with diffuse nonspecific hepatic heterogeneity. Small amount of perihepatic ascites. No obvious evidence of cholelithiasis. Borderline gallbladder wall thickness. Moderate amount of inspissated bile/sludge within the gallbladder lumen. Common bile duct appears to be slightly prominent with a 0.7cm diameter - F/u MRCP, discussed with MRI yesterday, patient was supposed to go yesterday but was bumped off schedule. Tech today states she is on the schedule for this afternoon - Appreciate GI consult 6) Hyperammonemia - Resolved 7) Triple negative metastatic breast cancer to liver, lung, chest wall, pleura, bone - Per Dr. Wills's RN, patient had progression of disease on Gemcitabine and Carboplatin. Was given Eribulin on 03/31/17 and was scheduled for round 2 of Eribulin on 05/27 - S/p 12/12 palliative spine RT 04/2017 8) Left lung chronic pleural effusion with PleurX - Drain prn 9) B/l lower extremity edema - Doppler negative for DVT b/l - Lymphadema wrap with improvement in edema - Received lasix yesterday, however patient reports worsening leg edema today - Keep legs elevated and wrapped - Start daily lasix 10) F/E/N: - Monitor electrolytes - Hypophosphatemia: replete - Hyponatremia: Lasix yesterday, Na 126 today, start daily lasix 11) Prophylaxis: - Hold all chemical DVT prophylaxis 2/2 severe thrombocytopenia - SCDs bilaterally 12) Dispo: - Requires continued inpatient care - Had discussion about DNR/DNI with patient and family at the bedside. The mother stated in Chinese and was translated to me in Nepali "we don't believe in mechanical ventilation". They stated they are not ready at this time to put anything into writing and will discuss it as a family when I leave CODE STATUS: FULL CODE Visit type - Emergency Visit Emergency Visit: Yes ED Registration Date: 05/28/17 Care time: The patient presented to the Emergency Department on the above date and was hospitalized for further evaluation of their emergent condition. - New Patient This patient is new to me today: No - Critical Care Critical Care patient: No
--- NOTE | 2017-05-30 12:54 | PN ---
Progress Note, Physician Chief Complaint: The patient seen in her room. Family visiting. Awake, very weak, alert. Short of breath. Maintains good urine output. No pains. History of Present Illness: 41 y/o female with Metastatic Breast CA to bone, liver, lung. Has periods of dyspnea. - Current Medication List Current Medications: Active Medications Docusate Sodium (Colace -) [address] [facility] Last Admin: 05/30/17 09:28 Dose: 100 mg Fentanyl (Duragesic 25mcg Patch -) [address] [facility] Last Admin: 05/28/17 18:50 Dose: 1 patch Guaifenesin (Robitussin -) 10 ml PO Q6H PRN PRN Reason: COUGH Last Admin: 05/29/17 11:58 Dose: 10 ml Piperacillin/Tazobactam/Dextrose (Zosyn 4.5gm Ivpb (Premix)) 100 mls @ 200 mls/ hr IVPB Q8H-IV KAREN PRN Reason: Protocol Last Admin: 05/30/17 09:27 Dose: 200 mls/hr Sodium Phosphate 15 mm/ Sodium (Chloride) 255 mls @ 62.5 mls/hr IVPB ONCE ONE Stop: 05/30/17 14:04 Last Admin: 05/30/17 12:00 Dose: 62.5 mls/hr Lactic Acid (Lac-Hydrin 12) [address] [facility] Last Admin: 05/30/17 09:28 Dose: 1 applic Methylprednisolone Sodium Succinate (Solu-Medrol -) [address] [facility] Last Admin: 05/30/17 09:27 Dose: 40 mg Ondansetron HCl (Zofran -) 8 mg PO Q8H PRN PRN Reason: NAUSEA Oxycodone HCl (Roxicodone -) 5 mg PO Q4H PRN PRN Reason: PAIN LEVEL 1-5 Last Admin: 05/29/17 21:13 Dose: 5 mg Oxycodone HCl (Roxicodone -) 10 mg PO Q4H PRN PRN Reason: PAIN Potassium Phos/Sodium Phos (Phos-Nak Packet -) [address] [facility] Last Admin: 05/30/17 09:28 Dose: 1 packet Senna (Senna -) [address] [facility] Last Admin: 05/30/17 09:27 Dose: 1 tab - Objective Vital Signs: Vital Signs Temperature 98.2 F 05/30/17 09:00 Pulse Rate 102 H 05/30/17 09:00 Respiratory Rate 18 05/30/17 09:00 Blood Pressure 114/68 05/30/17 09:00 O2 Sat by Pulse Oximetry (%) 100 05/29/17 20:12 Constitutional: Yes: Mild Distress, Pallor Eyes: Yes: Conjunctiva Clear, Other (deep scleral icterus) Neck: Yes: Trachea Midline Cardiovascular: Yes: Regular Rate and Rhythm, S1, S2 Respiratory: Yes: Regular, Diminished Gastrointestinal: Yes: Normal Bowel Sounds, Soft, Ascites Labs: CBC, BMP 05/30/17 06:00 05/30/17 06:00 INR, PTT INR 1.50 (0.82-1.09) H 05/27/17 17:00 Problem List - Problems (1) Biliary obstruction Code(s): K83.1 - OBSTRUCTION OF BILE DUCT (2) Dyspnea Code(s): R06.00 - DYSPNEA, UNSPECIFIED Qualifiers: Dyspnea type: unspecified Qualified Code(s): R06.00 - Dyspnea, unspecified; R06.00 - Dyspnea, unspecified (3) Hyponatremia Code(s): E87.1 - HYPO-OSMOLALITY AND HYPONATREMIA (4) Liver failure Code(s): K72.90 - HEPATIC FAILURE, UNSPECIFIED WITHOUT COMA Qualifiers: Liver failure chronicity: acute Hepatic coma status: without hepatic coma Qualified Code(s): K72.00 - Acute and subacute hepatic failure without coma; K72.00 - Acute and subacute hepatic failure without coma (5) Metastasis to liver Code(s): C78.7 - SECONDARY MALIG NEOPLASM OF LIVER AND INTRAHEPATIC BILE DUCT (6) Breast cancer Code(s): C50.919 - MALIGNANT NEOPLASM OF UNSP SITE OF UNSPECIFIED FEMALE BREAST Assessment/Plan Severe thrombocytopenia Platelets 6,000 Needs transfusion Hypophosphatemia: replete as ordered Hyponatremia: Serum Na 126 mEq today. Will give additional dose of Lasix today. Shortness of breath Notes of several physicians reviewed. Possibilities seem many for the dyspnea. But invasive investigations may be risky or unwarranted at this point. Will give IV Lasix Type B lactic acidosis Secondary to extensive metastatic disease Will monitor. Transaminitis The patient deeply icteric, and with a Total Bilirubin >7 mg/dL. Patient jaundiced with icteric sclera Will continue Zosyn for now for possible biliary obstruction/cholangitis Metastatic breast cancer to liver, lung, chest wall, pleura, bone Will monitor the renal/ electrolyte functions with you. Thank you. Donna Monson MD
[2017-05-30] MEDS: FUROSEMIDE 40 MG/4 ML INJECTABLE VIAL IVPUSH SCH (13:57)
[2017-05-30 14:09] LABS: MCH 34.3 pg (25.7-33.7); MCHC 33.1 g/dl (32.0-36.0); MEAN CELL VOLUME 103.8 fl (80-96); MEAN PLT VOLUME 8.3 fl (7.5-11.1); PLATELET COUNT 86 K/MM3 (134-434); RDW 29.3 % (11.6-15.6); WHITE BLOOD COUNT 10.4 K/mm3 (4.0-10.0)
--- NOTE | 2017-05-30 16:09 | PN ---
Progress Note, Physician History of Present Illness: Not in distress, or pain. Mild SOB otherwise comfortable. Asking for something to help sleep better - Current Medication List Current Medications: Active Medications Docusate Sodium (Colace -) 100 mg PO DAILY [facility] Last Admin: 05/30/17 09:28 Dose: 100 mg Fentanyl (Duragesic 25mcg Patch -) 1 patch TD Q72H [facility] Last Admin: 05/28/17 18:50 Dose: 1 patch Furosemide (Lasix Injection -) 40 mg IVPUSH DAILY [facility] Last Admin: 05/30/17 13:57 Dose: 40 mg Guaifenesin (Robitussin -) 10 ml PO Q6H PRN PRN Reason: COUGH Last Admin: 05/29/17 11:58 Dose: 10 ml Piperacillin/Tazobactam/Dextrose (Zosyn 4.5gm Ivpb (Premix)) 100 mls @ 200 mls/ hr IVPB Q8H-IV KAREN PRN Reason: Protocol Last Admin: 05/30/17 09:27 Dose: 200 mls/hr Lactic Acid (Lac-Hydrin 12) 1 applic TP BID [facility] Last Admin: 05/30/17 09:28 Dose: 1 applic Methylprednisolone Sodium Succinate (Solu-Medrol -) 20 mg IVPUSH DAILY [facility] Ondansetron HCl (Zofran -) 8 mg PO Q8H PRN PRN Reason: NAUSEA Oxycodone HCl (Roxicodone -) 5 mg PO Q4H PRN PRN Reason: PAIN LEVEL 1-5 Last Admin: 05/29/17 21:13 Dose: 5 mg Oxycodone HCl (Roxicodone -) 10 mg PO Q4H PRN PRN Reason: PAIN Potassium Phos/Sodium Phos (Phos-Nak Packet -) 1 packet PO TID KAREN Senna (Senna -) 1 tab PO DAILY [facility] Last Admin: 05/30/17 09:27 Dose: 1 tab - Objective Vital Signs: Vital Signs Temperature 97.5 F L 05/30/17 15:00 Pulse Rate 109 H 05/30/17 15:00 Respiratory Rate 20 05/30/17 15:00 Blood Pressure 97/57 05/30/17 15:00 O2 Sat by Pulse Oximetry (%) 100 05/30/17 09:00 Vital Signs (72 hours) 1005/27/17 05/27/17 16:21 18:40 21:46 Temperature 98.4 F Pulse Rate Pulse Rate [ 124 H 130 H Left Radial] Respiratory 22 22 Rate Blood Pressure Blood Pressure 98/64 100/70 [Left Arm] O2 Sat by Pulse 98 95 95 Oximetry (%) 05/28/17 05/28/17 05/28/17 09:42 10:33 12:14 Temperature 97.8 F Pulse Rate Pulse Rate [ 128 H 127 H 123 H Left Radial] Respiratory 23 23 29 H Rate Blood Pressure Blood Pressure 96/72 98/76 97/78 [Left Arm] O2 Sat by Pulse 96 99 100 Oximetry (%) 05/28/17 05/28/17 05/28/17 15:23 16:54 17:37 Temperature 97.8 F Pulse Rate 122 H Pulse Rate [ 110 H 122 H Left Radial] Respiratory 26 H 30 H 26 H Rate Blood Pressure 96/68 Blood Pressure 97/68 94/45 [Left Arm] O2 Sat by Pulse 98 98 Oximetry (%) 05/28/17 05/28/17 05/29/17 17:47 21:00 01:00 Temperature 97.7 F 97.5 F L Pulse Rate 118 H 120 H Pulse Rate [ Left Radial] Respiratory 24 24 Rate Blood Pressure 101/67 100/58 Blood Pressure [Left Arm] O2 Sat by Pulse 97 99 Oximetry (%) 05/29/17 05/29/17 05/29/17 06:00 09:00 10:00 Temperature 97.8 F 98.2 F Pulse Rate 120 H 120 H Pulse Rate [ Left Radial] Respiratory 24 22 22 Rate Blood Pressure 98/58 96/63 Blood Pressure [Left Arm] O2 Sat by Pulse 98 Oximetry (%) 05/29/17 05/29/17 05/29/17 14:27 16:30 20:12 Temperature 98.0 F 97.3 F L Pulse Rate 117 H 113 H Pulse Rate [ Left Radial] Respiratory 22 24 Rate Blood Pressure 91/63 104/68 Blood Pressure [Left Arm] O2 Sat by Pulse 100 Oximetry (%) 05/29/17 05/30/17 05/30/17 21:00 01:00 05:00 Temperature 97.0 F L 98 F 97.7 F Pulse Rate 107 H 104 H 105 H Pulse Rate [ Left Radial] Respiratory 22 20 20 Rate Blood Pressure 107/88 91/65 100/68 Blood Pressure [Left Arm] O2 Sat by Pulse Oximetry (%) 05/30/17 05/30/17 09:00 15:00 Temperature 98.2 F 97.5 F L Pulse Rate 102 H 109 H Pulse Rate [ Left Radial] Respiratory 18 20 Rate Blood Pressure 114/68 97/57 Blood Pressure [Left Arm] O2 Sat by Pulse 100 Oximetry (%) Constitutional: Yes: No Distress, Calm Eyes: Yes: Sclera Icterus Gastrointestinal: Yes: Normal Bowel Sounds, Soft, Distention. No: Tenderness Integumentary: Yes: Jaundice Neurological: Yes: Alert, Oriented Labs: CBC, BMP 05/30/17 13:15 05/30/17 06:00 INR, PTT INR 1.50 (0.82-1.09) H 05/27/17 17:00 Abnormal Lab Results 05/29/17 05/29/17 05/29/17 13:00 18:00 18:00 WBC RBC 2.85 L Hgb 9.9 L Hct 29.2 L MCV 102.7 H MCH 34.8 H RDW 29.3 H Plt Count 12 L* MPV Sodium 127 L Chloride 92 L Creatinine 0.4 L Random Glucose Serum Osmolality 260 L Lactic Acid Calcium 6.8 L* Phosphorus Total Bilirubin AST ALT Alkaline Phosphatase Total Protein Albumin 05/29/17 05/30/17 05/30/17 18:00 06:00 06:00 WBC 10.1 H RBC 2.83 L Hgb 9.8 L Hct 29.7 L MCV 104.8 H MCH 34.7 H RDW 28.6 H Plt Count 6 L* D MPV 4.6 L Sodium 126 L Chloride 90 L Creatinine 0.4 L Random Glucose 70 L D Serum Osmolality Lactic Acid Calcium 6.8 L* Phosphorus 1.9 L D 1.3 L D Total Bilirubin 7.2 H AST 1220 H ALT 252 H D Alkaline Phosphatase 456 H D Total Protein 5.0 L Albumin 1.7 L 05/30/17 05/30/17 06:00 13:15 WBC 10.4 H RBC 2.78 L Hgb 9.6 L Hct 28.9 L MCV 103.8 H MCH 34.3 H RDW 29.3 H Plt Count 86 L D MPV Sodium Chloride Creatinine Random Glucose Serum Osmolality Lactic Acid 6.9 H* Calcium Phosphorus Total Bilirubin AST ALT Alkaline Phosphatase Total Protein Albumin - ....Imaging MRI: Pending Problem List - Problems (1) Jaundice Code(s): R17 - UNSPECIFIED JAUNDICE (2) Metastatic breast cancer Code(s): C50.919 - MALIGNANT NEOPLASM OF UNSP SITE OF UNSPECIFIED FEMALE BREAST (3) Metastasis to liver Code(s): C78.7 - SECONDARY MALIG NEOPLASM OF LIVER AND INTRAHEPATIC BILE DUCT Assessment/Plan Acute onset jaundice in settings of multiorgan metastatic liver disease. Intrahepatic cholestasis secondary to metastatic disease, mass effect. Not in distress, or pain. Mild SOB otherwise comfortable. Asking for something to help sleep better at night. 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
[2017-05-30] MEDS: oxyCODONE HCL 5 MG TABLET PO PRN (19:38)
[2017-05-31] MEDS: PIPERACILLIN/TAZOB 4.5 GM 100 ML IVPB SCH (02:00)
[2017-05-31] MEDS: oxyCODONE HCL 5 MG TABLET PO PRN ×2 (05:45→16:14)
[2017-05-31] MEDS: NAPH,MB-DB/K PH,MBDB POWDER PACKET PO SCH ×3 (05:45→22:00)
[2017-05-31 06:46] LABS: BASOPHIL 0.1 % (0-2.0); MCH 34.6 pg (25.7-33.7); MCHC 33.3 g/dl (32.0-36.0); MEAN CELL VOLUME 103.9 fl (80-96); MEAN PLT VOLUME 8.5 fl (7.5-11.1); NEUTROPHILS 76.3 % (42.8-82.8); PLATELET COUNT 61 K/MM3 (134-434); RDW 29.9 % (11.6-15.6); WHITE BLOOD COUNT 10.1 K/mm3 (4.0-10.0)
[2017-05-31 07:50] LABS: ALBUMIN 1.9 g/dl (3.4-5.0); ANION GAP 13 (8-16); CO2 24 mmol/L (21-32); CREATININE 0.5 mg/dL (0.55-1.02); GLUCOSE,RANDOM 99 mg/dL (74-106); PHOSPHOROUS 1.4 mg/dL (2.5-4.9); SGPT/ALT 222 U/L (12-78); TOT PROT 5.2 g/dl (6.4-8.2)
[2017-05-31 07:56] LABS: ALK PHOS 511 U/L (45-117); BILIRUBIN,TOTAL 8.3 mg/dL (0.2-1.0)
[2017-05-31 08:20] LABS: SGOT/AST 824 U/L (15-37)
[2017-05-31] MEDS ORDERED: SODIUM PHOSPHATE - 20 MM in SODIUM CHLORIDE 250 ML IVPB ONE (08:45)
[2017-05-31 09:05] LABS: CALCIUM 6.8 mg/dL (8.5-10.1)
--- NOTE | 2017-05-31 09:33 | PN ---
Progress Note, Physician Chief Complaint: Appears comfortable Remains on antibiotics No fever - Current Medication List Current Medications: Active Medications Docusate Sodium (Colace -) 100 mg PO DAILY [facility] Last Admin: 05/30/17 09:28 Dose: 100 mg Fentanyl (Duragesic 25mcg Patch -) 1 patch TD Q72H [facility] Last Admin: 05/28/17 18:50 Dose: 1 patch Furosemide (Lasix Injection -) 40 mg IVPUSH DAILY [facility] Last Admin: 05/30/17 13:57 Dose: 40 mg Guaifenesin (Robitussin -) 10 ml PO Q6H PRN PRN Reason: COUGH Last Admin: 05/30/17 16:53 Dose: 10 ml Piperacillin/Tazobactam/Dextrose (Zosyn 4.5gm Ivpb (Premix)) 100 mls @ 200 mls/ hr IVPB Q8H-IV KAREN PRN Reason: Protocol Last Admin: 05/31/17 02:00 Dose: 200 mls/hr Sodium Phosphate 20 mm/ Sodium (Chloride) 256.6667 mls @ 62.5 mls/hr IVPB ONCE ONE Stop: 05/31/17 12:51 Lactic Acid (Lac-Hydrin 12) 1 applic TP BID [facility] Last Admin: 05/30/17 22:18 Dose: 1 applic Methylprednisolone Sodium Succinate (Solu-Medrol -) 20 mg IVPUSH DAILY [facility] Ondansetron HCl (Zofran -) 8 mg PO Q8H PRN PRN Reason: NAUSEA Oxycodone HCl (Roxicodone -) 5 mg PO Q4H PRN PRN Reason: PAIN LEVEL 1-5 Last Admin: 05/31/17 05:45 Dose: 5 mg Oxycodone HCl (Roxicodone -) 10 mg PO Q4H PRN PRN Reason: PAIN Potassium Phos/Sodium Phos (Phos-Nak Packet -) 1 packet PO TID [facility] Last Admin: 05/31/17 05:45 Dose: 1 packet Senna (Senna -) 1 tab PO DAILY [facility] Last Admin: 05/30/17 09:27 Dose: 1 tab - Objective Vital Signs: Vital Signs Temperature 98.2 F 05/31/17 08:15 Pulse Rate 124 H 05/31/17 08:15 Respiratory Rate 18 05/31/17 08:15 Blood Pressure 104/64 05/31/17 08:15 O2 Sat by Pulse Oximetry (%) 95 05/30/17 20:23 Constitutional: Yes: No Distress, Cachectic Neck: Yes: WNL, Supple Cardiovascular: Yes: Regular Rate and Rhythm, S1, S2 Respiratory: Yes: WNL, Regular, CTA Bilaterally Gastrointestinal: Yes: Soft. No: Tenderness Labs: CBC, BMP 05/31/17 06:00 05/31/17 06:00 INR, PTT INR 1.50 (0.82-1.09) H 05/27/17 17:00 Problem List - Problems (1) Metastasis to liver Code(s): C78.7 - SECONDARY MALIG NEOPLASM OF LIVER AND INTRAHEPATIC BILE DUCT (2) Metastatic breast cancer Code(s): C50.919 - MALIGNANT NEOPLASM OF UNSP SITE OF UNSPECIFIED FEMALE BREAST (3) Biliary obstruction Code(s): K83.1 - OBSTRUCTION OF BILE DUCT Assessment/Plan Laboratory Tests 05/30/17 05/30/17 05/31/17 06:00 06:00 06:00 WBC Plt Count BUN 18 Creatinine 0.5 L D Lactic Acid 6.9 H* Total Bilirubin 7.2 H 8.3 H AST 824 H D ALT 222 H Alkaline Phosphatase 511 H 05/31/17 06:00 WBC 10.1 H Plt Count 61 L D BUN Creatinine Lactic Acid Total Bilirubin AST ALT Alkaline Phosphatase Assessment Lactic acid from cancer Doubt cholangitis clinically Plan Stop antibiotics MRI pending Bhanu MILLER
[2017-05-31] MEDS: SENNOSIDES 8.6MG TABLET (FP) PO SCH (09:48)
[2017-05-31] MEDS: FUROSEMIDE 40 MG/4 ML INJECTABLE VIAL IVPUSH SCH (09:49)
[2017-05-31] MEDS: methylPREDNISolone NA SUCC 40 MG/1 ML VIAL IVPUSH SCH (09:49)
[2017-05-31] MEDS: DOCUSATE SODIUM 100 MG CAPSULE (FP) PO SCH (09:49)
[2017-05-31] MEDS: AMMONIUM LACTATE 12% LOTION 225 GM BOTTLE TP SCH ×2 (09:49→22:05)
[2017-05-31] MEDS: guaiFENesin 200 MG/10 ML 10 ML UNIT-DOSE CUPS PO PRN (09:50)
--- NOTE | 2017-05-31 14:09 | PN ---
Progress Note, Physician Chief Complaint: The patient seen in her room. Seems comfortbale. Family visiting. Deeply jaundiced. Awake, very weak, alert. Short of breath. Gross anasarca. Maintains good urine output. No pains. History of Present Illness: 41 y/o female with Metastatic Breast CA to bone, liver, lung, spine, pleura Has periods of dyspnea. - Current Medication List Current Medications: Active Medications Docusate Sodium (Colace -) 100 mg PO DAILY [facility] Last Admin: 05/31/17 09:49 Dose: 100 mg Fentanyl (Duragesic 25mcg Patch -) 1 patch TD Q72H [facility] Last Admin: 05/28/17 18:50 Dose: 1 patch Furosemide (Lasix Injection -) 40 mg IVPUSH DAILY [facility] Last Admin: 05/31/17 09:49 Dose: 40 mg Guaifenesin (Robitussin -) 10 ml PO Q6H PRN PRN Reason: COUGH Last Admin: 05/31/17 09:50 Dose: 10 ml Lactic Acid (Lac-Hydrin 12) 1 applic TP BID [facility] Last Admin: 05/31/17 09:49 Dose: 1 applic Methylprednisolone Sodium Succinate (Solu-Medrol -) 20 mg IVPUSH DAILY [facility] Last Admin: 05/31/17 09:49 Dose: 20 mg Ondansetron HCl (Zofran -) 8 mg PO Q8H PRN PRN Reason: NAUSEA Oxycodone HCl (Roxicodone -) 5 mg PO Q4H PRN PRN Reason: PAIN LEVEL 1-5 Last Admin: 05/31/17 05:45 Dose: 5 mg Oxycodone HCl (Roxicodone -) 10 mg PO Q4H PRN PRN Reason: PAIN Potassium Phos/Sodium Phos (Phos-Nak Packet -) 1 packet PO TID [facility] Last Admin: 05/31/17 13:43 Dose: 1 packet Senna (Senna -) 1 tab PO DAILY [facility] Last Admin: 05/31/17 09:48 Dose: 1 tab - Objective Vital Signs: Vital Signs Temperature 98.2 F 05/31/17 08:15 Pulse Rate 124 H 05/31/17 08:15 Respiratory Rate 18 05/31/17 08:15 Blood Pressure 104/64 05/31/17 08:15 O2 Sat by Pulse Oximetry (%) 95 05/30/17 20:23 Constitutional: Yes: Anxious, Mild Distress HENT: Yes: Atraumatic Neck: Yes: Tenderness Cardiovascular: Yes: S1, S2 Respiratory: Yes: Regular, Diminished Gastrointestinal: Yes: Soft Edema: LLE: 3+, RLE: 3+ Neurological: Yes: Alert Labs: CBC, BMP 05/31/17 06:00 05/31/17 06:00 INR, PTT INR 1.50 (0.82-1.09) H 05/27/17 17:00 Problem List - Problems (1) Biliary obstruction Code(s): K83.1 - OBSTRUCTION OF BILE DUCT (2) Dyspnea Code(s): R06.00 - DYSPNEA, UNSPECIFIED Qualifiers: Dyspnea type: unspecified Qualified Code(s): R06.00 - Dyspnea, unspecified; R06.00 - Dyspnea, unspecified (3) Hyponatremia Code(s): E87.1 - HYPO-OSMOLALITY AND HYPONATREMIA (4) Liver failure Code(s): K72.90 - HEPATIC FAILURE, UNSPECIFIED WITHOUT COMA Qualifiers: Liver failure chronicity: acute Hepatic coma status: without hepatic coma Qualified Code(s): K72.00 - Acute and subacute hepatic failure without coma; K72.00 - Acute and subacute hepatic failure without coma (5) Metastasis to liver Code(s): C78.7 - SECONDARY MALIG NEOPLASM OF LIVER AND INTRAHEPATIC BILE DUCT (6) Breast cancer Code(s): C50.919 - MALIGNANT NEOPLASM OF UNSP SITE OF UNSPECIFIED FEMALE BREAST Assessment/Plan Severe thrombocytopenia Received Platelets transfusion Hypophosphatemia: replete as ordered Hyponatremia: Serum Na 126 mEq today. Stable. Shortness of breath Notes of several physicians reviewed. Possibilities seem many for the dyspnea. But invasive investigations may be risky or unwarranted at this point. Will give IV Lasix Type B lactic acidosis Secondary to extensive metastatic disease Will monitor. Transaminitis The patient deeply icteric, and with a Total Bilirubin 8.3 mg/dL. Patient jaundiced with icteric sclera Will continue Zosyn for now for possible biliary obstruction/cholangitis Metastatic breast cancer to liver, lung, chest wall, pleura, bone Will monitor the renal/ electrolyte functions with you. Prognosis: Poor Thank you. Donna Monson MD
[2017-05-31] MEDS ORDERED: SODIUM CHLORIDE NASAL SPRAY 44 ML BOTTLE NS PRN (15:20)
--- NOTE | 2017-05-31 15:20 | PN ---
Progress Note (short form) - Note Progress Note: Subjective: The patient was seen and examined at the bedside, she reports still with shortness of breath, denies any chest pain. Has dry cough Transfused 1u platelets yesterday with good response, continue to monitor Called [facility], awaiting bed for transfer Antibiotics discontinued on 05/31 Current Medications Generic Name Dose Route Start Last Admin Trade Name Freq PRN Reason Stop Dose Admin Docusate Sodium 100 mg 05/29/17 10:00 05/31/17 09:49 Colace - PO 100 mg DAILY KAREN Administration Fentanyl 1 patch 05/28/17 18:00 05/28/17 18:50 Duragesic 25mcg Patch - TD 1 patch Q72H KAREN Administration Furosemide 40 mg 05/30/17 13:30 05/31/17 09:49 Lasix Injection - IVPUSH 40 mg DAILY KAREN Administration Guaifenesin 10 ml 05/28/17 01:34 05/31/17 09:50 Robitussin - PO 10 ml Q6H PRN Administration COUGH Lactic Acid 1 applic 05/29/17 22:00 05/31/17 09:49 Lac-Hydrin 12 TP 1 applic BID KAREN Administration Methylprednisolone Sodium Succinate 20 mg 05/30/17 13:38 05/31/17 09:49 Solu-Medrol - IVPUSH 20 mg DAILY KAREN Administration Ondansetron HCl 8 mg 05/29/17 03:15 Zofran - PO Q8H PRN NAUSEA Oxycodone HCl 5 mg 05/28/17 18:56 05/31/17 05:45 Roxicodone - PO 5 mg Q4H PRN Administration PAIN LEVEL 1-5 Oxycodone HCl 10 mg 05/28/17 18:56 Roxicodone - PO Q4H PRN PAIN Potassium Phos/Sodium Phos 1 packet 05/30/17 22:00 05/31/17 13:43 Phos-Nak Packet - PO 1 packet TID KAREN Administration Senna 1 tab 05/29/17 10:00 05/31/17 09:48 Senna - PO 1 tab DAILY KAREN Administration Sodium Chloride 2 spray 05/31/17 15:20 [place] Nasal [place] - NS BID PRN NASAL CONGESTION Objective: Vital Signs Period Temp Pulse Resp BP Sys/[place] Pulse Ox Last 24 Hr 97.6 F-98.3 F 114-124 18-20 92-105/64-72 95 Physical Exam: General: NAD, A&Ox3 HEENT: Sclera icteric Lungs: Tachypnic. Decreased breath sounds bilaterally, greater on the left. Left PleurX in place Heart: Tachycardia. S1S2 Abd: Soft, non-tender, non-distended. Normoactive bowel sounds Ext: B/l lower extremities with 3+ pitting edema. 2+ DP/PT bilaterally Skin: Right breast fungating tumor Neuro: CN 2-12 intact CBCD WBC 10.1 K/mm3 (4.0-10.0) H 05/31/17 06:00 RBC 2.82 M/mm3 (3.60-5.2) L 05/31/17 06:00 Hgb 9.8 GM/dL (10.7-15.3) L 05/31/17 06:00 Hct 29.3 % (32.4-45.2) L 05/31/17 06:00 MCV 103.9 fl (80-96) H 05/31/17 06:00 MCHC 33.3 g/dl (32.0-36.0) 05/31/17 06:00 RDW 29.9 % (11.6-15.6) H 05/31/17 06:00 Plt Count 61 K/MM3 (134-434) L D 05/31/17 06:00 MPV 8.5 fl (7.5-11.1) 05/31/17 06:00 CMP Sodium 126 mmol/L (136-145) L 05/31/17 06:00 Potassium 4.3 mmol/L (3.5-5.1) 05/31/17 06:00 Chloride 89 mmol/L (98-107) L 05/31/17 06:00 Carbon Dioxide 24 mmol/L (21-32) 05/31/17 06:00 Anion Gap 13 (8-16) 05/31/17 06:00 BUN 18 mg/dL (7-18) 05/31/17 06:00 Creatinine 0.5 mg/dL (0.55-1.02) L D 05/31/17 06:00 Creat Clearance w eGFR > 60 (>60) 05/31/17 06:00 Random Glucose 99 mg/dL (74-106) D 05/31/17 06:00 Calcium 6.8 mg/dL (8.5-10.1) L* 05/31/17 06:00 Total Bilirubin 8.3 mg/dL (0.2-1.0) H 05/31/17 06:00 AST 824 U/L (15-37) H D 05/31/17 06:00 ALT 222 U/L (12-78) H 05/31/17 06:00 Alkaline Phosphatase 511 U/L (45-117) H 05/31/17 06:00 Total Protein 5.2 g/dl (6.4-8.2) L 05/31/17 06:00 Albumin 1.9 g/dl (3.4-5.0) L 05/31/17 06:00 Microbiology 05/29/17 13:20 Urine - Urine Clean Catch Urine Culture - Final 05/27/17 16:47 Blood - Peripheral Venous Blood Culture - Preliminary NO GROWTH OBTAINED AFTER 72 HOURS, INCUBATION TO CONTINUE FOR 2 DAYS. 05/27/17 16:47 Blood - Peripheral Venous Blood Culture - Preliminary NO GROWTH OBTAINED AFTER 72 HOURS, INCUBATION TO CONTINUE FOR 2 DAYS. 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 Plan: 1) Severe thrombocytopenia - S/p 1u platelets yesterday - Continue to monitor platelets - F/u hematology consult 2) Shortness of breath - Progression of disease vs. PE vs. worsening pleural effusion - PleurX draining minimally, continue PRN drainage - Discussed with the patient possibility of PE, however unable to treat at this time due to severe thrombocytopenia. Patient and family aware of this - Will defer chest CTA at this time (patient refused) as it will not change the current management given severe thrombocytopenia - O2 via NC prn - Appreciate pulmonary consult 3) Lymphangitic carcinomatosis - Continue Solumedrol at lower dose, 20mg IVPB daily (patient was anxious at higher dose) 4) Type B lactic acidosis - 2/2 extensive metastatic disease and elevated total bili/liver enzymes - Continue to trend 5) Transaminitis - Labs from 05/13 reveal total bilirubin 1, AST 238, ALT 78, Alk phos 199 - Patient jaundice with icteric sclera - MRCP with extensive metastatis disease to the liver with no evidence of dilatation of the intrahepatic biliary radicles. No evidence of dilatation of the common hepatic and common bile duct. No evidence of pancreatic duct dilatation. Ascites. Right pleural effusions - Liver ultrasound with diffuse nonspecific hepatic heterogeneity. Small amount of perihepatic ascites. No obvious evidence of cholelithiasis. Borderline gallbladder wall thickness. Moderate amount of inspissated bile/sludge within the gallbladder lumen. 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 Wills's RN, patient had progression of disease on Gemcitabine and Carboplatin. Was given Eribulin on 03/31/17 and was scheduled for round 2 of Eribulin on 05/27 - S/p / palliative spine RT 04/2017 8) Left lung chronic pleural effusion with PleurX - Drain prn 9) B/l lower extremity edema - Doppler negative for DVT b/l - Lymphadema wrap with improvement in edema - Continue Lasix daily - Keep legs elevated and wrapped 10) F/E/N: - Monitor electrolytes - Hypophosphatemia: replete - Hyponatremia: 2/2 hypervolemia, continue lasix and 1.2 L fluid restriction 11) Prophylaxis: - Hold all chemical DVT prophylaxis 2/2 severe thrombocytopenia - SCDs bilaterally 12) Dispo: - Requires continued inpatient care - Family still discussing code status - Possible transfer to [facility] tomorrow when a bed becomes available - HR at [facility] during recent hospitalization 110s-120s. Her HR here is stable in the 110s-120s and should not prevent patient from being transferred tomorrow. CODE STATUS: FULL CODE Visit type - Emergency Visit Emergency Visit: Yes ED Registration Date: 05/28/17 Care time: The patient presented to the Emergency Department on the above date and was hospitalized for further evaluation of their emergent condition. - New Patient This patient is new to me today: No - Critical Care Critical Care patient: No
[2017-05-31] MEDS ORDERED: ALPRAZolam 0.25 MG TABLET PO ONE (15:50)
[2017-05-31] MEDS ORDERED: FENTANYL PATCH WASTE TD PRN (17:15)
[2017-05-31] MEDS: fentaNYL 25mcg/hr PATCH.TD72 TD SCH (17:42)
[2017-05-31] MEDS ORDERED: PT OWN MED DRAWER 7, Y5N ONE (18:57)
[2017-05-31] MEDS ORDERED: oxyCODONE HCL 5 MG TABLET PO PRN (21:22)
[2017-06-01] MEDS: guaiFENesin 200 MG/10 ML 10 ML UNIT-DOSE CUPS PO PRN (01:20)
[2017-06-01] MEDS ORDERED: oxyCODONE HCL 5 MG TABLET PO ONE (02:19)
[2017-06-01] MEDS: NAPH,MB-DB/K PH,MBDB POWDER PACKET PO SCH ×2 (06:48→14:54)
[2017-06-01 06:55] LABS: MCH 34.2 pg (25.7-33.7); MCHC 32.7 g/dl (32.0-36.0); MEAN CELL VOLUME 104.4 fl (80-96); MEAN PLT VOLUME 8.4 fl (7.5-11.1); PLATELET COUNT 38 K/MM3 (134-434); RDW 30.8 % (11.6-15.6); WHITE BLOOD COUNT 11.4 K/mm3 (4.0-10.0)
[2017-06-01 07:23] LABS: ALK PHOS 557 U/L (45-117); ANION GAP 18 (8-16); BILIRUBIN,TOTAL 9.9 mg/dL (0.2-1.0); CO2 22 mmol/L (21-32); CREATININE 0.4 mg/dL (0.55-1.02); GLUCOSE,RANDOM 93 mg/dL (74-106); PHOSPHOROUS 1.5 mg/dL (2.5-4.9); SGPT/ALT 218 U/L (12-78); TOT PROT 5.6 g/dl (6.4-8.2)
[2017-06-01 07:29] LABS: SGOT/AST 577 U/L (15-37)
[2017-06-01 07:30] LABS: CALCIUM 6.7 mg/dL (8.5-10.1)
[2017-06-01] MEDS ORDERED: SODIUM CHLORIDE 250 ML IV STA (07:42)
--- NOTE | 2017-06-01 09:24 | PN ---
Physical Exam: SUBJECTIVE: Patient seen and examined at the bedside. She states her breathing has improved, denies any discomfort or pain. Comfortable at rest, no coughing. OBJECTIVE: Called [facility] as patient is awaiting a tele bed As per Tara TABLEAU ANALYST: she will call back with bed availability Anion gap 18, lilkely secondary to lactic acidosis, not likely dka Patient continues with metabolic imbalance Vital Signs Period Temp Pulse Resp BP Sys/[place] Pulse Ox Last 24 Hr 97.5 F-97.8 F 117-120 19-20 90-105/65-70 96 GENERAL: The patient is awake, alert, and fully oriented, in mild respiratory distress, tolerating 4 liters of oxygen @94%, dyspnea with movement HEAD: Normal with no signs of trauma. EYES: Jaundiced sclera ENT: Ears normal, nares patent, oropharynx clear without exudates, moist mucous membranes. NECK: Trachea midline, full range of motion, supple. LUNGS: anterior breath sounds diminished HEART: ST 120s, ABDOMEN: non tended, non distended EXTREMITIES: anassarca NEUROLOGICAL:Normal speech, bedbound secondary to weakness and dyspnea PSYCH: Normal mood, normal affect. SKIN: Warm, dry, normal turgor, no rashes or lesions noted Laboratory Results - last 24 hr 05/31/17 06/01/17 06/01/17 10:20 06:25 06:25 WBC 11.4 H RBC 3.08 L Hgb 10.5 L Hct 32.1 L MCV 104.4 H MCH 34.2 H MCHC 32.7 RDW 30.8 H Plt Count 38 L D MPV 8.4 Sodium 128 L Potassium 4.5 Chloride 88 L Carbon Dioxide 22 Anion Gap 18 H BUN 22 H D Creatinine 0.4 L Creat Clearance w eGFR > 60 Random Glucose 93 Lactic Acid 8.5 H* Calcium 6.7 L* Phosphorus 1.5 L Total Bilirubin 9.9 H AST 577 H D ALT 218 H Alkaline Phosphatase 557 H Total Protein 5.6 L Albumin 2.0 L Active Medications Generic Name Dose Route Start Last Admin Trade Name Freq PRN Reason Stop Dose Admin Docusate Sodium 100 mg 05/29/17 10:00 05/31/17 09:49 Colace - PO 100 mg DAILY KAREN Administration Fentanyl 1 patch 05/28/17 18:00 05/31/17 17:42 Duragesic 25mcg Patch - TD 1 patch Q72H KAREN Administration Furosemide 40 mg 05/30/17 13:30 05/31/17 09:49 Lasix Injection - IVPUSH 40 mg DAILY KAREN Administration Guaifenesin 10 ml 05/28/17 01:34 06/01/17 01:20 Robitussin - PO 10 ml Q6H PRN Administration COUGH Lactic Acid 1 applic 05/29/17 22:00 05/31/17 22:05 Lac-Hydrin 12 TP 1 applic BID KAREN Administration Methylprednisolone Sodium Succinate 20 mg 05/30/17 13:38 05/31/17 09:49 Solu-Medrol - IVPUSH 20 mg DAILY KAREN Administration Miscellaneous 1 each 05/31/17 17:15 05/31/17 17:40 Duragesic Patch Waste TD 1 each PRN PRN Administration Ondansetron HCl 8 mg 05/29/17 03:15 Zofran - PO Q8H PRN NAUSEA Oxycodone HCl 5 mg 05/31/17 21:22 Roxicodone - PO Q4H PRN PAIN Potassium Phos/Sodium Phos 1 packet 05/30/17 22:00 06/01/17 06:48 Phos-Nak Packet - PO 1 packet TID KAREN Administration Senna 1 tab 05/29/17 10:00 05/31/17 09:48 Senna - PO 1 tab DAILY KAREN Administration Sodium Chloride 2 spray 05/31/17 15:20 05/31/17 17:43 [place] Nasal [place] - NS 2 spray BID PRN Administration NASAL CONGESTION ASSESSMENT/PLAN: Patient is a 41 year old female with a significant past medical history of metastatic right breast cancer with metastatic disease to the bone, liver. lung , pleura pleura (s/p left PleurX) and spine. She is awaiting transfer to [facility] (tele bed). Verbal report given to Tara IBANEZ, as indicated above. 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 cardinomatosis, acute on chronic On Solumedrol 20mg IV daily, continue Pulmonary Shortness of breath, acute on chronic Patient reports her breathing has improved today, on supplemental oxygen She has anasarca and SOB likely secondary to advance lung mets On a Lasix drip as per renal She is fluid overloaded, monitor intake and output Patient had previously refused CTA, will continue to defer as per her wishes Pulmonary following GI: Transaminitis, acute on chronic Has liver metastatic disease, + ascites + generalized jaundice Total Bili 9.9, icteric sclera MRCP reviewed Patient has generalized jaundice GI following Renal: Type B lactic acidosis/elevated anion gap, chronic Secondary to extensive metastatic disease, monitor labs discussed with renal, anion gap likely type B lactic acid Metabolic Disarray with Type B lactic acidosis Severe electrolyte imbalance, now with elevated anion gap likely secondary to type B lactic acidosis, acute on chronic Discussed with renal Monitor labs Vascular B/l lower extremity edema with worsening anasarca On A Lasix drip as per renal Negative for DVT Elevated legs F.E.N. Fluids: fluid restriction, tolerating PO Electrolytes: hypophos, on Phos p acks, hyponatremia @128>on a fluid restriction 1.2 liters Nutrition: regular diet Prophylaxis: SCDs, no chemical anticoag due to thrombocytopenia GI: deferred Disposition: Transfer to [facility]. Accepting physician: Dr Kirsten Reyes. Full code. Visit type - Emergency Visit Emergency Visit: Yes ED Registration Date: 05/28/17 Care time: The patient presented to the Emergency Department on the above date and was hospitalized for further evaluation of their emergent condition. - New Patient This patient is new to me today: Yes Date on this admission: 06/01/17 - Critical Care Critical Care patient: No - Discharge Referral Referred to [facility] No
--- NOTE | 2017-06-01 10:36 | PN ---
Progress Note, Physician History of Present Illness: Not in distress, or pain. Comfortable. Mother at bedside. MRI findings discussed. - Current Medication List Current Medications: Active Medications Docusate Sodium (Colace -) 100 mg PO DAILY [facility] Last Admin: 05/31/17 09:49 Dose: 100 mg Fentanyl (Duragesic 25mcg Patch -) 1 patch TD Q72H [facility] Last Admin: 05/31/17 17:42 Dose: 1 patch Furosemide (Lasix Injection -) 40 mg IVPUSH DAILY [facility] Last Admin: 05/31/17 09:49 Dose: 40 mg Guaifenesin (Robitussin -) 10 ml PO Q6H PRN PRN Reason: COUGH Last Admin: 06/01/17 01:20 Dose: 10 ml Lactic Acid (Lac-Hydrin 12) 1 applic TP BID [facility] Last Admin: 05/31/17 22:05 Dose: 1 applic Methylprednisolone Sodium Succinate (Solu-Medrol -) 20 mg IVPUSH DAILY [facility] Last Admin: 05/31/17 09:49 Dose: 20 mg Miscellaneous (Duragesic Patch Waste) 1 each TD PRN PRN Last Admin: 05/31/17 17:40 Dose: 1 each Ondansetron HCl (Zofran -) 8 mg PO Q8H PRN PRN Reason: NAUSEA Oxycodone HCl (Roxicodone -) 5 mg PO Q4H PRN PRN Reason: PAIN Potassium Phos/Sodium Phos (Phos-Nak Packet -) 1 packet PO TID [facility] Last Admin: 06/01/17 06:48 Dose: 1 packet Senna (Senna -) 1 tab PO DAILY [facility] Last Admin: 05/31/17 09:48 Dose: 1 tab Sodium Chloride ([place] Nasal [place] -) 2 spray NS BID PRN PRN Reason: NASAL CONGESTION Last Admin: 05/31/17 17:43 Dose: 2 spray - Objective Vital Signs: Vital Signs Temperature 97.5 F L 06/01/17 02:00 Pulse Rate 120 H 06/01/17 06:00 Respiratory Rate 20 06/01/17 06:00 Blood Pressure 90/70 06/01/17 06:00 O2 Sat by Pulse Oximetry (%) 96 05/31/17 20:20 Constitutional: Yes: Calm Eyes: Yes: Sclera Icterus HENT: Yes: Atraumatic Neck: Yes: Supple Cardiovascular: Yes: Tachycardia Respiratory: Yes: Regular Gastrointestinal: Yes: Soft, Distention. No: Tenderness Edema: LLE: 3+, RLE: 3+ Integumentary: Yes: Jaundice Neurological: Yes: Alert, Oriented Labs: CBC, BMP 06/01/17 06:25 06/01/17 06:25 INR, PTT INR 1.50 (0.82-1.09) H 05/27/17 17:00 - ....Imaging MRI: Report Reviewed Problem List - Problems (1) Jaundice Code(s): R17 - UNSPECIFIED JAUNDICE (2) Metastatic breast cancer Code(s): C50.919 - MALIGNANT NEOPLASM OF UNSP SITE OF UNSPECIFIED FEMALE BREAST (3) Metastasis to liver Code(s): C78.7 - SECONDARY MALIG NEOPLASM OF LIVER AND INTRAHEPATIC BILE DUCT Assessment/Plan Acute onset jaundice in settings of multiorgan metastatic liver disease. Intrahepatic cholestasis secondary to extensive metastatic disease, mass effect. Not in distress, or pain. Discussed with the patient and her mother Supportive care Awaiting transfer to [facility] telemetry
[2017-06-01] MEDS: methylPREDNISolone NA SUCC 40 MG/1 ML VIAL IVPUSH SCH (10:41)
[2017-06-01] MEDS: FUROSEMIDE 40 MG/4 ML INJECTABLE VIAL IVPUSH SCH (10:41)
[2017-06-01] MEDS: DOCUSATE SODIUM 100 MG CAPSULE (FP) PO SCH (10:41)
[2017-06-01] MEDS: SENNOSIDES 8.6MG TABLET (FP) PO SCH (10:41)
[2017-06-01] MEDS: AMMONIUM LACTATE 12% LOTION 225 GM BOTTLE TP SCH (10:41)
--- NOTE | 2017-06-01 11:21 | CONS ---
DATE OF CONSULTATION: 05/28/2017 HISTORY: The patient was seen on May 28 in the emergency room with a history of metastatic breast cancer with pulmonary metastasis, left PleurX catheter, and liver and bone metastasis. She has been followed at [facility] and was admitted with chief complaints of shortness of breath and a nonproductive cough for several days at home. She has been on chronic home oxygen therapy for several weeks. She denied any fever, chills, sick contacts. She has a Port-A-Cath in place, which had not been recently accessed. On admission, the patient was afebrile but noted to be tachycardic with an elevated lactic acid of 7.6. I am asked to see her for possible sepsis. She denies any hemoptysis and has an infiltrating cancer involving the chest wall. She had no urinary complaints or abdominal pains. PAST MEDICAL HISTORY: As noted above. MEDICATIONS: Fentanyl patch, oxycodone. ALLERGIES: None known. SOCIAL HISTORY: Nonsmoker. No history of alcohol. No HIV risk factors. HIV tested negative. FAMILY HISTORY: Reviewed and noncontributory. REVIEW OF SYSTEMS: Respiratory: Nonproductive cough with dyspnea. Cardiac: No chest pain, palpitations, syncope, murmur. Gastrointestinal: No abdominal pain, vomiting, diarrhea. Positive weight loss. Positive loss of appetite. Genitourinary: No dysuria, hematuria. PHYSICAL EXAMINATION: Vital Signs: Her temperature is 98, pulse 117, respiratory rate 22, blood pressure 90/63, pulse oximetry 98%. HEENT: Reveals scleral icterus. Oropharynx without thrush. Neck: Supple. No adenopathy. Chest: With an infiltrating, necrotic tumor involving the right breast. Left Port-A-Cath in situ. Heart: S1, S2. Regular rhythm. Tachycardic. No murmur. Abdomen: Soft. Normoactive bowel sounds. Nontender without organomegaly. Extremities: With bilateral pitting edema. LABORATORY DATA: The white count is 8.5, hemoglobin 11.6, platelets 26,000, INR 1.50. ABG: BUN 17, creatinine 0.5, lactic acid 7.6, bilirubin 5.2, AST 346, ALT 114, alkaline phosphatase 345. Urinalysis: 26 WBCs, 3 RBCs, 1+ leukocyte esterase. DIAGNOSTIC DATA: Chest x-ray was reviewed. Shows extensive bilateral pleural changes with pleural effusions. CT of the abdomen shows numbers hepatic lesions consistent with neoplastic disease. A small amount of ascites. Bilateral flank edema. Bilateral pleural effusions with left drainage catheter. T8, T12 vertebral bodies suggest neoplastic disease. ASSESSMENT: Metastatic cancer with involvement of bone, liver, and lung. Thrombocytopenia noted. May also be a reflection of invasive disease in the marrow from tumor. The possibility of sepsis has to be considered in this immunocompromised patient with widely metastatic cancer and tachycardia with lactic acidosis. Elevated liver enzymes noted secondary to metastatic liver disease, possible biliary obstruction. PLAN: Two sets of blood cultures, urine culture, empiric therapy with vancomycin and Zosyn to cover possible sepsis including urinary tract infection and biliary infection. Further consideration of GI consultation. A case was discussed with Keisha Blackmon who informs me that the patient would like to be transferred to [facility] and that arrangements for this are in the process of being made. CRYSTAL VELA M.D. [id number]
--- NOTE | 2017-06-01 11:29 | PN ---
Progress Note, Physician History of Present Illness: PULMONARY ALERT,MORE COMFORTABLE,LESS DYSPNEIC - Current Medication List Current Medications: Active Medications Docusate Sodium (Colace -) 100 mg PO DAILY [facility] Last Admin: 06/01/17 10:41 Dose: 100 mg Fentanyl (Duragesic 25mcg Patch -) 1 patch TD Q72H [facility] Last Admin: 05/31/17 17:42 Dose: 1 patch Furosemide (Lasix Injection -) 40 mg IVPUSH DAILY [facility] Last Admin: 06/01/17 10:41 Dose: 40 mg Guaifenesin (Robitussin -) 10 ml PO Q6H PRN PRN Reason: COUGH Last Admin: 06/01/17 01:20 Dose: 10 ml Lactic Acid (Lac-Hydrin 12) 1 applic TP BID [facility] Last Admin: 06/01/17 10:41 Dose: 1 applic Methylprednisolone Sodium Succinate (Solu-Medrol -) 20 mg IVPUSH DAILY [facility] Last Admin: 06/01/17 10:41 Dose: 20 mg Miscellaneous (Duragesic Patch Waste) 1 each TD PRN PRN Last Admin: 05/31/17 17:40 Dose: 1 each Ondansetron HCl (Zofran -) 8 mg PO Q8H PRN PRN Reason: NAUSEA Oxycodone HCl (Roxicodone -) 5 mg PO Q4H PRN PRN Reason: PAIN Last Admin: 06/01/17 10:51 Dose: 5 mg Potassium Phos/Sodium Phos (Phos-Nak Packet -) 1 packet PO TID [facility] Last Admin: 06/01/17 06:48 Dose: 1 packet Senna (Senna -) 1 tab PO DAILY [facility] Last Admin: 06/01/17 10:41 Dose: 1 tab Sodium Chloride ([place] Nasal [place] -) 2 spray NS BID PRN PRN Reason: NASAL CONGESTION Last Admin: 05/31/17 17:43 Dose: 2 spray - Objective Vital Signs: Vital Signs Temperature 97.5 F L 06/01/17 02:00 Pulse Rate 120 H 06/01/17 06:00 Respiratory Rate 20 06/01/17 06:00 Blood Pressure 90/70 06/01/17 06:00 O2 Sat by Pulse Oximetry (%) 96 05/31/17 20:20 Constitutional: Yes: Well Nourished, Calm Eyes: Yes: WNL HENT: Yes: WNL Neck: Yes: Supple Cardiovascular: Yes: Regular Rate and Rhythm, S1, S2 Respiratory: Yes: Diminished Gastrointestinal: Yes: Normal Bowel Sounds, Soft Extremities: Yes: WNL Edema: Yes Labs: CBC, BMP 06/01/17 06:25 06/01/17 06:25 INR, PTT INR 1.50 (0.82-1.09) H 05/27/17 17:00 Assessment/Plan Problem List - Problems (1) Dyspnea Code(s): R06.00 - DYSPNEA, UNSPECIFIED Qualifiers: Dyspnea type: unspecified Qualified Code(s): R06.00 - Dyspnea, unspecified; R06.00 - Dyspnea, unspecified (2) Hepatic encephalopathy syndrome Code(s): K72.90 - HEPATIC FAILURE, UNSPECIFIED WITHOUT COMA (3) Hyponatremia Code(s): E87.1 - HYPO-OSMOLALITY AND HYPONATREMIA (4) Jaundice Code(s): R17 - UNSPECIFIED JAUNDICE (5) Metastasis to liver Code(s): C78.7 - SECONDARY MALIG NEOPLASM OF LIVER AND INTRAHEPATIC BILE DUCT (6) Metastatic breast cancer Code(s): C50.919 - MALIGNANT NEOPLASM OF UNSP SITE OF UNSPECIFIED FEMALE BREAST (7) Pleural effusion Code(s): J90 - PLEURAL EFFUSION, NOT ELSEWHERE CLASSIFIED Assessment/Plan PleureX drainage PRN : doubt small volumes being obtained would make an objective difference Lasix Humidified O2 ABX per ID Daily weight Supportive care Prognosis poor DR BLACKBURN
--- NOTE | 2017-06-01 11:58 | PN ---
Progress Note, Physician Chief Complaint: The patient seen in her room. Seems comfortbale. Family visiting. Deeply jaundiced. Awake, very weak, alert. Short of breath. Gross anasarca. Maintains good urine output. No pains. Very poor oral intake. History of Present Illness: 41 y/o female with Metastatic Breast CA to bone, liver, lung, spine, pleura Has periods of dyspnea. The patient has profound jaundice, due to multiple hepatic lesions. - Current Medication List Current Medications: Active Medications Docusate Sodium (Colace -) 100 mg PO DAILY [facility] Last Admin: 06/01/17 10:41 Dose: 100 mg Fentanyl (Duragesic 25mcg Patch -) 1 patch TD Q72H [facility] Last Admin: 05/31/17 17:42 Dose: 1 patch Furosemide (Lasix Injection -) 40 mg IVPUSH DAILY [facility] Last Admin: 06/01/17 10:41 Dose: 40 mg Guaifenesin (Robitussin -) 10 ml PO Q6H PRN PRN Reason: COUGH Last Admin: 06/01/17 01:20 Dose: 10 ml Lactic Acid (Lac-Hydrin 12) 1 applic TP BID [facility] Last Admin: 06/01/17 10:41 Dose: 1 applic Methylprednisolone Sodium Succinate (Solu-Medrol -) 20 mg IVPUSH DAILY [facility] Last Admin: 06/01/17 10:41 Dose: 20 mg Miscellaneous (Duragesic Patch Waste) 1 each TD PRN PRN Last Admin: 05/31/17 17:40 Dose: 1 each Ondansetron HCl (Zofran -) 8 mg PO Q8H PRN PRN Reason: NAUSEA Oxycodone HCl (Roxicodone -) 5 mg PO Q4H PRN PRN Reason: PAIN Last Admin: 06/01/17 10:51 Dose: 5 mg Potassium Phos/Sodium Phos (Phos-Nak Packet -) 1 packet PO TID [facility] Last Admin: 06/01/17 06:48 Dose: 1 packet Senna (Senna -) 1 tab PO DAILY [facility] Last Admin: 06/01/17 10:41 Dose: 1 tab Sodium Chloride ([place]al [place] -) 2 spray NS BID PRN PRN Reason: NASAL CONGESTION Last Admin: 05/31/17 17:43 Dose: 2 spray - Objective Vital Signs: Vital Signs Temperature 97.5 F L 06/01/17 02:00 Pulse Rate 120 H 06/01/17 06:00 Respiratory Rate 20 06/01/17 06:00 Blood Pressure 90/70 06/01/17 06:00 O2 Sat by Pulse Oximetry (%) 96 05/31/17 20:20 Constitutional: Yes: Moderate Distress, Other (deep icterus) Eyes: Yes: Sclera Icterus Neck: Yes: Trachea Midline Cardiovascular: Yes: Regular Rate and Rhythm, S1, S2 Respiratory: Yes: Regular, Diminished Gastrointestinal: Yes: Normal Bowel Sounds, Soft Breast(s): Yes: Skin Changes (right breast removed) Labs: CBC, BMP 06/01/17 06:25 06/01/17 06:25 INR, PTT INR 1.50 (0.82-1.09) H 05/27/17 17:00 Problem List - Problems (1) Biliary obstruction Code(s): K83.1 - OBSTRUCTION OF BILE DUCT (2) Dyspnea Code(s): R06.00 - DYSPNEA, UNSPECIFIED Qualifiers: Dyspnea type: unspecified Qualified Code(s): R06.00 - Dyspnea, unspecified; R06.00 - Dyspnea, unspecified (3) Hyponatremia Code(s): E87.1 - HYPO-OSMOLALITY AND HYPONATREMIA (4) Liver failure Code(s): K72.90 - HEPATIC FAILURE, UNSPECIFIED WITHOUT COMA Qualifiers: Liver failure chronicity: acute Hepatic coma status: without hepatic coma Qualified Code(s): K72.00 - Acute and subacute hepatic failure without coma; K72.00 - Acute and subacute hepatic failure without coma (5) Metastasis to liver Code(s): C78.7 - SECONDARY MALIG NEOPLASM OF LIVER AND INTRAHEPATIC BILE DUCT (6) Breast cancer Code(s): C50.919 - MALIGNANT NEOPLASM OF UNSP SITE OF UNSPECIFIED FEMALE BREAST Assessment/Plan Severe thrombocytopenia Received Platelets transfusion Hypophosphatemia: replete as ordered Hyponatremia: Serum Na 128 mEq today. Slowly improving Shortness of breath ---many possibilities for the dyspnea. But invasive investigations may be risky or unwarranted at this point. Will give IV Lasix Type B lactic acidosis Secondary to extensive metastatic disease Will monitor. Transaminitis The patient deeply icteric, and with a Total Bilirubin 9.9 mg/dL. Patient jaundiced with icteric sclera Will continue Abx Metastatic breast cancer to liver, lung, chest wall, pleura, bone Will monitor the renal/ electrolyte functions with you. Awaiting transfer to [facility]. Prognosis: Poor Thank you. Donna Monson MD
[2017-06-01] MEDS ORDERED: FUROSEMIDE INJECTION 100 MG in SODIUM CHLORIDE 90 ML IVPB SCH ×2 (12:00→14:00)
[2017-06-01 12:19] VITALS: BP 92/70; PULSE 123; TEMP 97.4
--- NOTE | 2017-06-01 13:28 | DS ---
Physical Exam: SUBJECTIVE: Patient seen and examined OBJECTIVE: Called [facility] as patient is awaiting a tele bed As per MARCELLE Pacheco: she will call back with bed availability Anion gap 18, likely secondary to lactic acidosis, not likely dka Patient continues with metabolic imbalance Vital Signs Period Temp Pulse Resp BP Sys/[place] Pulse Ox Last 24 Hr 97.4 F-97.8 F 117-123 18-20 90-105/65-70 96-98 PHYSICAL EXAM GENERAL: The patient is awake, alert, and fully oriented, in mild respiratory distress, tolerating 4 liters of oxygen @94%, dyspnea with movement HEAD: Normal with no signs of trauma, icteric sclera EYES: Jaundiced sclera ENT: Ears normal, nares patent, oropharynx clear without exudates, moist mucous membranes. NECK: Trachea midline, full range of motion, supple. LUNGS: anterior breath sounds diminished HEART: ST 120s, ABDOMEN: non tended, non distended EXTREMITIES: anassarca NEUROLOGICAL:Normal speech, bedbound secondary to weakness and dyspnea PSYCH: Normal mood, normal affect. SKIN: Warm, dry, normal turgor, no rashes or lesions noted LABS Laboratory Results - last 24 hr 06/01/17 06/01/17 06:25 06:25 WBC 11.4 H RBC 3.08 L Hgb 10.5 L Hct 32.1 L MCV 104.4 H MCH 34.2 H MCHC 32.7 RDW 30.8 H Plt Count 38 L D MPV 8.4 Sodium 128 L Potassium 4.5 Chloride 88 L Carbon Dioxide 22 Anion Gap 18 H BUN 22 H D Creatinine 0.4 L Creat Clearance w eGFR > 60 Random Glucose 93 Calcium 6.7 L* Phosphorus 1.5 L Total Bilirubin 9.9 H AST 577 H D ALT 218 H Alkaline Phosphatase 557 H Total Protein 5.6 L Albumin 2.0 L HOSPITAL COURSE: Date of Admission:05/28/17 Date of Discharge: 06/01/17 ASSESSMENT/PLAN: Patient is a 41 year old female with a significant past medical history of metastatic right breast cancer with metastatic disease to the bone, liver. lung , pleura pleura (s/p left PleurX) and spine. She is awaiting transfer to [facility] (tele bed). Verbal report given to Tara [employer], as indicated above. 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 cardinomatosis, acute on chronic On Solumedrol 20mg IV daily, continue Pulmonary Shortness of breath, acute on chronic Patient reports her breathing has improved today, on supplemental oxygen She has anasarca and SOB likely secondary to advance lung mets On a Lasix drip as per renal She is fluid overloaded, monitor intake and output Patient had previously refused CTA, will continue to defer as per her wishes Pulmonary following GI: Transaminitis, acute on chronic Has liver metastatic disease, + ascites + generalized jaundice Total Bili 9.9, icteric sclera MRCP reviewed Patient has generalized jaundice GI following Renal: Type B lactic acidosis/elevated anion gap, chronic Secondary to extensive metastatic disease, monitor labs discussed with renal, anion gap likely type B lactic acid Metabolic Disarray with Type B lactic acidosis Severe electrolyte imbalance, now with elevated anion gap likely secondary to type B lactic acidosis, acute on chronic Discussed with renal Monitor labs Vascular B/l lower extremity edema with worsening anasarca On A Lasix drip as per renal Negative for DVT Elevated legs F.E.N. Fluids: fluid restriction, tolerating PO Electrolytes: hypophos, on Phos p acks, hyponatremia @128>on a fluid restriction 1.2 liters Nutrition: regular diet Prophylaxis: SCDs, no chemical anticoag due to thrombocytopenia GI: deferred Disposition: Transfer [place] [facility] Accepting physician: Dr Kirsten Reyes. Full code. Minutes to complete discharge: 60 Discharge Summary Reason For Visit: LIVER FAILURE/HEPATIC ENCEPHALOPATHY Current Active Problems Biliary obstruction (Acute) Breast cancer (Acute) Dyspnea (Acute) Hepatic encephalopathy syndrome (Acute) Hyponatremia (Acute) Jaundice (Acute) Liver failure (Acute) Metastasis to liver (Acute) Metastatic breast cancer (Acute) Pleural effusion (Acute) Condition: Guarded - Instructions Disposition: TRANSFER ACUTE CARE/OTHER HOSP - Home Medications Comprehensive Discharge Medication List: Ambulatory Orders Docusate Sodium 100 mg PO DAILY 05/27/17 FENTANYL 25mcg PATCH [DURAGESIC 25mcg PATCH -] 1 each TD Q72H 05/27/17 Ondansetron HCl [Zofran] 8 mg PO PRN 05/27/17 Oxycodone HCl 5 mg PO PRN 05/27/17 Sennosides [Senna] 8.6 mg PO DAILY 05/27/17 This patient is new to me today: Yes Date on this admission: 06/01/17 Emergency Visit: Yes ED Registration Date: 05/28/17 Care time: The patient presented to the Emergency Department on the above date and was hospitalized for further evaluation of their emergent condition. Critical Care patient: No - Discharge Referral Referred to [facility] Med P.C.: No
[2017-06-01] MEDS ORDERED: FUROSEMIDE 40 MG/4 ML INJECTABLE VIAL ONE (14:06)
== END 2017-06-01 15:15 | disposition short-term general hospital (02) | DRG 442 ==
LOC: JER 14:54 → JERBED 23:18 → UNDOADMOB 23:46 → JERBED 23:46 → J4W 05-28 17:40 → OBSVTOIN 05-28 18:18
PROVIDERS: ADMIT Internal Medicine; ATTEND Nurse Practitioner Family
DX: K72.00 Acute and subacute hepatic failure without coma (principal); C78.7 Secondary malignant neoplasm of liver and intrahepatic bile duct; C78.00 Secondary malignant neoplasm of unspecified lung; C79.51 Secondary malignant neoplasm of bone; C79.89 Secondary malignant neoplasm of other specified sites; C78.2 Secondary malignant neoplasm of pleura; E87.1 Hypo-osmolality and hyponatremia; J91.0 Malignant pleural effusion; R18.8 Other ascites; J90 Pleural effusion, not elsewhere classified; E87.2 Acidosis; R17 Unspecified jaundice; E72.20 Disorder of urea cycle metabolism, unspecified; K83.0 Cholangitis; C50.919 Malignant neoplasm of unspecified site of unspecified female breast; R00.0 Tachycardia, unspecified; D69.6 Thrombocytopenia, unspecified; R74.0 Nonspecific elevation of levels of transaminase and lactic acid dehydrogenase [LDH]; E83.39 Other disorders of phosphorus metabolism; E86.1 Hypovolemia; E87.8 Other disorders of electrolyte and fluid balance, not elsewhere classified
CPT/HCPCS: 36415; 36430; 36600; 71010-TC; 74178-TC; 74181-TC; 76705-TC; 80048; 80053; 80074; 81003; 81015; 82140; 82248; 82533; 82803; 83605; 83735; 83930; 83935; 84100; 84300; 84443; 85025; 85027; 85610; 85730; 86850; 86900; 86901; 87040; 87086; 93005; 93010; 93970-TC; 99285-25; G0378; P9034; P9038